=== PATIENT | male | born 1960 | race Caucasian/White ===

== ENCOUNTER 2024-11-04 18:23 | Emergency (ER) | payer OTHER, SELFPAY ==
[2024-11-04 18:24] VITALS: BP 101/64; PULSE 72; RESP 17; TEMP 36.4; O2SAT 93; BMI 33.2
--- NOTE | 2024-11-04 18:49 | CTR_ITS ---
PROCEDURE INFORMATION: Exam: CT Head Without Contrast Exam date and time: 11/04/2024 6:56 PM Age: 64 years old Clinical indication: Injury or trauma; Fall; Blunt trauma (contusions or hematomas); Seizure with frontal headstrike. History of RT side CVA. ; Additional info: Seizure fall anticoagulation TECHNIQUE: Imaging protocol: Computed tomography of the head without contrast. Radiation optimization: All CT scans at this facility use at least one of these dose optimization techniques: automated exposure control; mA and/or kV adjustment per patient size (includes targeted exams where dose is matched to clinical indication); or iterative reconstruction. COMPARISON: No relevant prior studies available. RADIATION DOSE METRICS: Total DLP (mGy-cm): 1078.98 FINDINGS: Brain: The posterosuperior aspect of the right temporal lobe in the posterior right MCA distribution demonstrates an area of remote ischemia. Overall measurements of this process are on the order of 2.2 x 2.7 x 4.6 cm in the CC, AP and transverse dimensions. Mild patchy decreased density seen in both cerebral hemispheres. The midline is intact. Beam hardening artifact through the skull base slightly obscures resolution at the posterior fossa. No hemorrhage. Unremarkable white matter. No mass effect. Mild atherosclerotic calcifications are seen in the bilateral supraclinoid ICA vessels. Cerebral ventricles: No ventriculomegaly. Paranasal sinuses: Visualized sinuses are unremarkable. No fluid levels. Mastoid air cells: Visualized mastoid air cells are well aerated. Bones: Unremarkable. No acute fracture. Soft tissues: Unremarkable. CT/CT head wo con* [id number] IMPRESSION: 1. No acute intracranial head CT findings. 2. Remote right posterolateral temporal lobe ischemic defect in the posterior right MCA distribution. 3. Atrophy/involutional changes of aging with mild chronic small-vessel disease.
--- NOTE | 2024-11-04 18:49 | XRR_ITS ---
PROCEDURE INFORMATION: Exam: XR Chest Exam date and time: 11/04/2024 6:58 PM Age: 64 years old Clinical indication: Prior surgery; Surgery date: 6+ months; Surgery type: Cervical fusion; Seizure activity; Additional info: Seizure fall TECHNIQUE: Imaging protocol: Radiologic exam of the chest. Views: 1 view. COMPARISON: No relevant prior studies available. FINDINGS: Lungs: Snap artifacts overlie the chest. A 2 cm rounded calcific like density seen over the right hilar region. I have marked this area with an arrow. A punctate calcified granuloma is seen over the periphery the right mid lung region. Soft tissue prominence similar challenges resolution due to diminished penetration. No consolidation. Pleural spaces: Costophrenic angles are fairly well demarcated.. No pleural effusion. No pneumothorax. Heart/Mediastinum: The cardiomediastinal silhouette is in the range of normal. No cardiomegaly. Bones/joints: Partially visualized at the edge of the field of view is a plate with screws located at the approximate C5-C6 level. No evidence of displaced rib fractures. XR/XR chest 1V portable [id number] IMPRESSION: 1. PA and lateral views are suggested when clinically feasible in order to better assess the right hilar presumed calcific rounded 2 cm density. 2. No acute single-view plain film findings.
[2024-11-04 18:51] VITALS: BP 101/64; PULSE 73; RESP 16; O2SAT 98
[2024-11-04 18:56] LABS: Basophils % 0.5 %; Eosinophils # 0.3 10^3/uL (0.0-0.8); Eosinophils % 5.6 %; Hematocrit 48.5 % (37-53); Lymphocytes # 1.7 10^3/uL (0.8-4.8); Lymphocytes % 28.1 %; Mean Corpuscular Hemoglobin 31.2 pg (27-33); Mean Corpuscular Volume 94.5 fl (82-101); Mean Platelet Volume 10.9 fL (7.4-10.4); Monocytes # 0.8 10^3/uL (0.2-0.9); Monocytes % 12.5 %; Neutrophils # 3.23 10^3/uL (1.8-7.7); Neutrophils % 53.1 %; Nucleated Red Blood Cells % 0 %; Platelet Count 236 10^3/cmm (157-399); Red Blood Count 5.13 10^6/uL (3.85-5.65); Red Cell Distribution Width 13.1 % (12.1-15.1); White Blood Count 6.08 10^3/uL (3.29-11.43)
[2024-11-04 18:58] LABS: Bilirubin Urine Negative (Negative); Blood Urine Negative (Negative); Glucose Urine UA Negative (Normal); Ketones Urine Negative (Negative); Leukocyte Esterase Urine Negative (Negative); Nitrate Urine Negative (Negative); Protein Urine Negative (Negative); Specific Gravity, Urine 1.009 (1.005-1.030); Urine Appearance Clear (CLEAR); Urine Color Yellow (Yellow); Urobilinogen Urine 0.2 mg/dL (Negative); pH Urine 6.5 (5-7)
[2024-11-04 19:03] LABS: Add Urine Microscopic? YES; Bacteria Urine None Seen /hpf; Hyaline Casts Urine 0-4 /lpf; RBC Urine 0-2 /hpf (0-2); Squamous Epithelial Cell Urine 0-5 /hpf (0-5); WBC Urine 0-5 /hpf (0-5)
--- NOTE | 2024-11-04 19:03 | W.ED.SEIZURE ---
HPI - Seizure General: Chief Complaint: Seizure Stated Complaint: seizure - hit head Time Seen by Provider: 11/04/24 18:28 History of Present Illness: HPI Narrative: Patient presents to the ER by EMS after having a seizure falling landing on the floor. Patient does not have any memory of this. Patient is in rehab for drug abuse. He has been feeling stressed recently. He does have a history of epilepsy and is currently taking all of his medication. Patient is fully alert oriented coherent. Seizure History: Yes Place: Home Related Data Allergies Allergy/AdvReac Type Severity Reaction Status Date / Time haloperidol (From Haldol) Allergy ADR-Cramping Verified 11/04/24 18:30 of the Muscles ketorolac (From Toradol) Allergy ALGY-Hives Verified 11/04/24 18:30 sumatriptan (From Imitrex) Allergy ADR-Chest Verified 11/04/24 18:30 Pain Review of Systems General: Reports: 10 or more systems reviewed and unremarkable except in HPI and below Physical Exam Const: COMMON NORMALS: no acute distress, average body habitus, patient oriented x3, no limitations, healthy appearing, alert and well nourished HENMT: COMMON NORMALS: normocephalic, atraumatic, hearing grossly normal bilaterally, external ears normal, Normal external nose present, moist oral mucous membranes and oropharynx normal HEAD & SCALP: normocephalic and atraumatic NOSE: Normal external nose present EXTERNAL EAR: Yes external ears normal Eye: COMMON NORMALS: Equal, round and reactive pupils present, EOMs intact bilaterally, conjunctivae normal and no scleral icterus CONJUNCTIVA: Yes conjunctivae normal PUPIL: Yes Equal, round and reactive pupils present Neck/C-Spine: COMMON NORMALS: full ROM, no lymphadenopathy, supple, no meningeal signs, no JVD and Thyroid normal THYROID: Thyroid normal Chest: COMMONS NORMALS: normal inspection of the chest and normal palpation of entire chest wall Resp: COMMON NORMALS: normal respiratory effort, No retractions, No use of accessory muscles and clear to auscultation bilaterally AUSCULTATION: clear to auscultation bilaterally Cardio: COMMON NORMALS: no JVD, regular rate, regular rhythm, S1 normal heart sound present, S2 normal heart sound present, No gallops present (Cardio), No clicks present (Cardio), No murmurs present (Cardio) and No rub (Cardio) RATE: regular rate RHYTHM: regular rhythm HEART SOUNDS: S1 normal heart sound present and S2 normal heart sound present GI: COMMON NORMALS: Normal to inspection, nondistended, normoactive bowel sounds present, Soft to palpation, non-tender, No hepatosplenomegaly present and no masses PALPATION: Yes Soft to palpation and Yes No hepatosplenomegaly present Neuro: COMMON NORMALS: patient oriented x3 SENSORIUM/ORIENTATION: Yes alert MENINGEAL SIGNS: Yes no meningeal signs Course Vital Signs: Vital signs: Vital Signs Temperature 97.6 F 11/04/24 18:24 Pulse Rate 73 11/04/24 19:57 Respiratory Rate 21 H 11/04/24 19:57 Blood Pressure 98/72 11/04/24 19:57 Pulse Oximetry 95 11/04/24 19:57 Oxygen Delivery Me thod Room Air 11/04/24 19:57 MDM - Seizure MDM Narrative Medical decision making narrative: Lab work, checks x-ray, head CT reviewed all essentially benign. Prolactin was slightly elevated 17.67. Went back into talk to the patient Tylenol results. Patient was sleeping soundly. Patient be discharged home. Medical Records Attestation: I reviewed the patient's medical records. Lab Data Attestation: I reviewed the patient's lab results. 11/04/24 18:10 11/04/24 18:10 Labs: Radiology Impressions Chest X-Ray 11/04/24 18:49 IMPRESSION: 1. PA and lateral views are suggested when clinically feasible in order to better assess the right hilar presumed calcific rounded 2 cm density. 2. No acute single-view plain film findings. Head CT 11/04/24 18:49 IMPRESSION: 1. No acute intracranial head CT findings. 2. Remote right posterolateral temporal lobe ischemic defect in the posterior right MCA distribution. 3. Atrophy/involutional changes of aging with mild chronic small-vessel disease. Laboratory Results WBC 6.08 10^3/uL (3.29-11.43) 11/04/24 18:10 RBC 5.13 10^6/uL (3.85-5.65) 11/04/24 18:10 Hgb 16.00 g/dL (11.27-16.99) 11/04/24 18:10 Hct 48.5 % (37-53) 11/04/24 18:10 MCV 94.5 fl (82-101) 11/04/24 18:10 MCH 31.2 pg (27-33) 11/04/24 18:10 MCHC 33.0 g/dL (30-55) 11/04/24 18:10 RDW 13.1 % (12.1-15.1) 11/04/24 18:10 Plt Count 236 10^3/cmm (157-399) 11/04/24 18:10 MPV 10.9 fL (7.4-10.4) H 11/04/24 18:10 Neut % (Auto) 53.1 % 11/04/24 18:10 Lymph % (Auto) 28.1 % 11/04/24 18:10 [place] % (Auto) 12.5 % 11/04/24 18:10 Eos % (Auto) 5.6 % 11/04/24 18:10 Baso % (Auto) 0.5 % 11/04/24 18:10 Neut # (Auto) 3.23 10^3/uL (1.8-7.7) 11/04/24 18:10 Lymph # (Auto) 1.7 10^3/uL (0.8-4.8) 11/04/24 18:10 [place] # (Auto) 0.8 10^3/uL (0.2-0.9) 11/04/24 18:10 Eos # (Auto) 0.3 10^3/uL (0.0-0.8) 11/04/24 18:10 Baso # (Auto) 0.0 10^3/uL (0.0-0.1) 11/04/24 18:10 Nucleated RBC % (auto) 0 % 11/04/24 18:10 Nucleated RBCs # 0.0 /100WBC 11/04/24 18:10 Sodium 138 mmol/L (136-145) 11/04/24 18:10 Potassium 4.2 mmol/L (3.5-5.1) 11/04/24 18:10 Chloride 102 mmol/L (98-107) 11/04/24 18:10 Carbon Dioxide 26 mmol/L (22-29) 11/04/24 18:10 Anion Gap 14.2 (5-19) 11/04/24 18:10 BUN 24 mg/dL (8-23) H 11/04/24 18:10 Creatinine 0.9 mg/dL (0.7-1.2) 11/04/24 18:10 GFR Calculation 85.0 mL/min (90-130) L 11/04/24 18:10 Glucose 107 mg/dL (65-115) 11/04/24 18:10 Calculated Osmolality 291 mOsm/kg (285-295) 11/04/24 18:10 Calcium 9.3 mg/dL (8.5-10.5) 11/04/24 18:10 Magnesium 2.2 mg/dL (1.7-2.3) 11/04/24 18:10 Total Bilirubin 0.3 mg/dL (0.15-1.2) 11/04/24 18:10 AST 13 U/L (0-40) 11/04/24 18:10 ALT 18 U/L (0-41) 11/04/24 18:10 Alkaline Phosphatase 123 U/L (40-130) 11/04/24 18:10 Creatine Kinase 68 U/L (39-308) 11/04/24 18:10 Total Protein 7.0 g/dL (6.6-8.7) 11/04/24 18:10 Albumin 4.0 g/dL (3.5-5.2) 11/04/24 18:10 Globulin 3.0 g/dL (1.3-4.6) 11/04/24 18:10 Prolactin 17.67 ng/mL (4.0-15.2) H 11/04/24 18:10 Urine Color Yellow (Yellow) 11/04/24 18:53 Urine Appearance Clear (CLEAR) 11/04/24 18:53 Urine pH 6.5 (5-7) 11/04/24 18:53 Ur Specific [place] 1.009 (1.005-1.030) 11/04/24 18:53 Urine Protein Negative (Negative) 11/04/24 18:53 Urine Glucose (UA) Negative (Normal) 11/04/24 18:53 Urine Ketones Negative (Negative) 11/04/24 18:53 Urine Blood Negative (Negative) 11/04/24 18:53 Urine Nitrate Negative (Negative) 11/04/24 18:53 Urine Bilirubin Negative (Negative) 11/04/24 18:53 Urine Urobilinogen 0.2 mg/dL (Negative) 11/04/24 18:53 Ur Leukocyte Esterase Negative (Negative) 11/04/24 18:53 Urine RBC 0-2 /hpf (0-2) 11/04/24 18:53 Urine WBC 0-5 /hpf (0-5) 11/04/24 18:53 Ur Squamous Epith Cells 0-5 /hpf (0-5) 11/04/24 18:53 Amorphous Sediment Not Reportable 11/04/24 18:53 Urine Bacteria None seen /hpf (NONE) 11/04/24 18:53 Hyaline Casts 0-4 /lpf H 11/04/24 18:53 All radiology interpretation(s) finalized by discharge Discharge Plan Discharge Patient Disposition: Home Clinical Impression: Epileptic seizure Condition: Stable Discharge Orders: Discharge ED (Routine); Ordered 11/04/24 Ordered By: Mike Kwok Patient Instructions: Epilepsy (ED) Activity Restrictions/Additional Instructions: Activity restrictions/additional instructions: Thank you for choosing [facility] for your healthcare needs today. Please realize that you were seen in the emergency department and that we are providing you with an emergency medical screening exam and this may not be a complete and all exclusive of all testing and/or medical workup we may need to determine your element or severity of your illness. It is very important that you follow-up as instructed with your primary care provider or specialist for the additional evaluation and to discuss your medical treatment plan. You may return to the emergency department should you have concerns or if your condition changes or worsens in any way. Print Language: Ukrainian Coding Level of Care Code ED [employer] Hand Helper for Aury Peña
[2024-11-04] MEDS: ondansetron 2 mg/ML SDV 2 mL 4 MG IVP (19:09)
[2024-11-04 19:22] LABS: Alanine Aminotransferase 18 U/L (0-41); Alkaline Phosphatase 123 U/L (40-130); Anion Gap 14.2 (5-19); Aspartate Amino Transferase 13 U/L (0-40); Blood Urea Nitrogen 24 mg/dL (8-23); Calcium 9.3 mg/dL (8.5-10.5); Carbon Dioxide 26 mmol/L (22-29); Chloride 102 mmol/L (98-107); Creatine Phosphokinase 68 U/L (39-308); Creatinine Clr Calc Pharmacy 106.7425; Glucose 107 mg/dL (65-115); Magnesium 2.2 mg/dL (1.7-2.3); Osmolality Calculated 291 mOsm/kg (285-295); Potassium 4.2 mmol/L (3.5-5.1); Prolactin 17.67 ng/mL (4.0-15.2); Sodium 138 mmol/L (136-145); Total Bilirubin 0.3 mg/dL (0.15-1.2)
[2024-11-04 19:57] VITALS: BP 98/72; PULSE 73; RESP 21; O2SAT 95
[2024-11-04 20:22] VITALS: BP 106/72; PULSE 78; O2SAT 96
== END 2024-11-04 20:23 | disposition home or self-care (01) ==
PROVIDERS: Emergency Provider Emergency Medicine
DX: G40.909 Epilepsy, unspecified, not intractable, without status epilepticus (principal)
CPT/HCPCS: 70450; 71045; 80053; 81001; 82550; 83735; 84146; 85025; 96374; 99285; J2405

== ENCOUNTER 2024-11-08 13:51 | Emergency (ER) | payer OTHER, SELFPAY ==
[2024-11-08 14:01] VITALS: BP 105/63; PULSE 81; RESP 17; TEMP 36.3; O2SAT 96; BMI 33.2
[2024-11-08 14:36] LABS: Basophils % 0.5 %; Eosinophils # 0.4 10^3/uL (0.0-0.8); Eosinophils % 6.8 %; Hematocrit 45.5 % (37-53); Lymphocytes # 1.5 10^3/uL (0.8-4.8); Lymphocytes % 23.5 %; Mean Corpuscular HGB Conc 32.1 g/dL (30-55); Mean Corpuscular Hemoglobin 30.8 pg (27-33); Mean Platelet Volume 10.1 fL (7.4-10.4); Monocytes # 0.9 10^3/uL (0.2-0.9); Monocytes % 13.9 %; Neutrophils # 3.48 10^3/uL (1.8-7.7); Neutrophils % 54.7 %; Nucleated Red Blood Cells % 0 %; Platelet Count 203 10^3/cmm (157-399); Red Blood Count 4.74 10^6/uL (3.85-5.65); Red Cell Distribution Width 13.7 % (12.1-15.1); White Blood Count 6.35 10^3/uL (3.29-11.43)
[2024-11-08 14:55] LABS: Alanine Aminotransferase 20 U/L (0-41); Albumin Level 3.6 g/dL (3.5-5.2); Alkaline Phosphatase 106 U/L (40-130); Anion Gap 12.3 (5-19); Aspartate Amino Transferase 15 U/L (0-40); Blood Urea Nitrogen 31 mg/dL (8-23); Calcium 8.6 mg/dL (8.5-10.5); Carbon Dioxide 22 mmol/L (22-29); Chloride 108 mmol/L (98-107); Creatinine Clr Calc Pharmacy 87.3347; Globulin 2.8 g/dL (1.3-4.6); Glomerular Filtration Rate 67.4 mL/min (90-130); Glucose 96 mg/dL (65-115); Osmolality Calculated 292 mOsm/kg (285-295); Potassium 4.3 mmol/L (3.5-5.1); Sodium 138 mmol/L (136-145); Total Bilirubin 0.2 mg/dL (0.15-1.2); Total Protein 6.4 g/dL (6.6-8.7)
--- NOTE | 2024-11-08 15:14 | ED_ITS ---
HPI - Seizure 2 General: Chief Complaint: Seizure Stated Complaint: having arcadio womack hit head on floor Time Seen by Provider: 11/08/24 15:08 Source: patient Mode of arrival: ambulatory Limitations: no limitations History of Present Illness: HPI Narrative: Patient is a 64-year-old male presents to ED today along with a member of the [facility] staff here for evaluation of seizures-states he has had 5 seizures over the past 3-4 days. Patient states he has a longstanding history of epilepsy that was initially diagnosed over a decade ago. He is not sure if he has ever been on seizure medications but states he currently is not on any. He was seen here in our emergency department 3 to 4 days ago for a complaint of seizures. Had a workup completed at that time including CT imaging. Patient states he is at [facility] for methamphetamine use and has not used in over 41 days. States he has not used alcohol in several years. He does not follow with neurology. MD complaint: seizure Onset (ago): day(s) Description of Episode: tonic-clonic movement -: minutes(s) Witnessed: Yes - by Bystander Trauma: No (no recent trauma; struck head on last ED visit and had CTs performed) Seizure History: Yes Associated symptoms: Reports no associated symptoms; Deny chest pain, chills, fever(s) or syncope Treatments prior to arrival: none Related Data Previous Rx's ?Medication ?Instructions ?Recorded levetiracetam 500 mg tablet 500 mg PO BID #60 tabs 07/25 (Keppra) Allergies Allergy/AdvReac Type Severity Reaction Status Date / Time haloperidol (From Haldol) Allergy ADR-Cramping Verified 11/04/24 18:30 of the Muscles ketorolac (From Toradol) Allergy ALGY-Hives Verified 11/04/24 18:30 sumatriptan (From Imitrex) Allergy ADR-Chest Verified 11/04/24 18:30 Pain Review of Systems 2 Const: Denies: fever(s) or chills Eyes: Denies: change in vision or blurry vision Card: Denies: chest pain, palpitations, irregular heart rhythm, lightheadedness, syncope or dyspnea on exertion Resp: Denies: dyspnea, productive cough or pain on inspiration GI: Denies: abdominal pain, nausea, vomiting, heartburn or diarrhea : Denies: difficulty urinating or dysuria Musc: Denies: neck pain, back pain or joint pain Skin/Breast: Denies: rash Neuro: Reports: seizure-like activity; Denies: headache(s), numbness in extremities, weakness in extremities, sensory changes or dizziness Physical Exam 2 Const: COMMON NORMALS: no acute distress, average body habitus, patient oriented x3, no limitations, healthy appearing, alert and well nourished G ENERAL APPEARANCE: cooperative ORIENTATION/CONSCIOUSNESS: Yes awake, Yes oriented to person, Yes oriented to place and Yes oriented to time HENMT: COMMON NORMALS: normocephalic and atraumatic HEAD & SCALP: normal to inspection, normocephalic and atraumatic FACE & SINUS: face symmetric Eye: COMMON NORMALS: Equal, round and reactive pupils present and EOMs intact bilaterally GENERAL EYE: appearance normal, both eyes and all related structures and normal light reflex PUPIL: Yes Equal, round and reactive pupils present DIRECT OPHTHALMOSCOPY: Yes normal light reflex Neck/C-Spine: COMMON NORMALS: full ROM, no lymphadenopathy, supple and no meningeal signs Chest: COMMONS NORMALS: normal inspection of the chest Resp: COMMON NORMALS: normal respiratory effort and clear to auscultation bilaterally AUSCULTATION: clear to auscultation bilaterally Cardio: COMMON NORMALS: regular rate and regular rhythm RATE: regular rate RHYTHM: regular rhythm Extremity: GENERAL: Yes normal exam except as noted Neuro: EUSEBIO COMA SCALE: document GCS findings Eusebio coma scale eye opening: Spontaneous [place] coma scale verbal response: Orientated Eusebio coma scale motor response: Obey commands [place] coma scale total score: 15 COMMON NORMALS: patient oriented x3, CN's II-XII intact bilaterally, moves all extremities, no focal motor deficits, no sensory deficits noted and gait normal SENSORIUM/ORIENTATION: Yes alert, Yes oriented to person, Yes oriented to place and Yes oriented to time MENINGEAL SIGNS: Yes no meningeal signs Skin: COMMON NORMALS: no rashes or lesions noted GENERAL SKIN EXAM: no rashes or lesions noted Course 2 Vital Signs: Vital signs: Vital Signs Temperature 97.3 F L 11/08/24 14:01 Pulse Rate 78 11/08/24 15:32 Respiratory Rate 17 11/08/24 14:01 Blood Pressure 118/69 11/08/24 15:32 Pulse Oximetry 97 11/08/24 15:32 Oxygen Delivery Me thod Room Air 11/08/24 15:32 MDM - Seizure MDM Narrative Medical decision making narrative: Patient will be given an IV loading dose of Keppra and placed on Keppra 500mg twice daily at home. Case management referral placed for neurology follow-up. Return to ED precautions discussed. Blood work was unremarkable today. He did receive more extensive workup just a few days ago here in our ED. I did not see any indication to repeat these today. Lab Data 11/08/24 14:28 11/08/24 14:28 Labs: Laboratory Results WBC 6.35 10^3/uL (3.29-11.43) 11/08/24 14:28 RBC 4.74 10^6/uL (3.85-5.65) 11/08/24 14:28 Hgb 14.60 g/dL (11.27-16.99) 11/08/24 14:28 Hct 45.5 % (37-53) 11/08/24 14:28 MCV 96.0 fl (82-101) 11/08/24 14:28 MCH 30.8 pg (27-33) 11/08/24 14:28 MCHC 32.1 g/dL (30-55) 11/08/24 14:28 RDW 13.7 % (12.1-15.1) 11/08/24 14:28 Plt Count 203 10^3/cmm (157-399) 11/08/24 14:28 MPV 10.1 fL (7.4-10.4) 11/08/24 14:28 Neut % (Auto) 54.7 % 11/08/24 14:28 Lymph % (Auto) 23.5 % 11/08/24 14:28 [place] % (Auto) 13.9 % 11/08/24 14:28 Eos % (Auto) 6.8 % 11/08/24 14:28 Baso % (Auto) 0.5 % 11/08/24 14:28 Neut # (Auto) 3.48 10^3/uL (1.8-7.7) 11/08/24 14:28 Lymph # (Auto) 1.5 10^3/uL (0.8-4.8) 11/08/24 14:28 [place] # (Auto) 0.9 10^3/uL (0.2-0.9) 11/08/24 14:28 Eos # (Auto) 0.4 10^3/uL (0.0-0.8) 11/08/24 14: Baso # (Auto) 0.0 10^3/uL (0.0-0.1) 11/08/24 14:28 Nucleated RBC % (auto) 0 % 11/08/24 14: Nucleated RBCs # 0.0 /100WBC 11/08/24 14:28 Sodium 138 mmol/L (136-145) 11/08/24 14:28 Potassium 4.3 mmol/L (3.5-5.1) 11/08/24 14:28 Chloride 108 mmol/L (98-107) H 11/08/24 14: Carbon Dioxide 22 mmol/L (22-29) 11/08/24 14: Anion Gap 12.3 (5-19) 11/08/24 14: BUN 31 mg/dL (8-23) H 11/08/24 14:28 Creatinine 1.1 mg/dL (0.7-1.2) 11/08/24 14:28 GFR Calculation 67.4 mL/min (90-130) L 11/08/24 14:28 Glucose 96 mg/dL (65-115) 11/08/24 14: Calculated Osmolality 292 mOsm/kg (285-295) 11/08/24 14:28 Calcium 8.6 mg/dL (8.5-10.5) 11/08/24 14:28 Total Bilirubin 0.2 mg/dL (0.15-1.2) 11/08/24 14:28 AST 15 U/L (0-40) 11/08/24 14:28 ALT 20 U/L (0-41) 11/08/24 14:28 Alkaline Phosphatase 106 U/L (40-130) 11/08/24 14:28 Total Protein 6.4 g/dL (6.6-8.7) L 11/08/24 14:28 Albumin 3.6 g/dL (3.5-5.2) 11/08/24 14:28 Globulin 2.8 g/dL (1.3-4.6) 11/08/24 14:28 No radiology studies performed this visit Discharge Plan Discharge Patient Disposition: Home Clinical Impression: Epileptic seizure Condition: Stable Prescriptions: New levetiracetam [Keppra] 500 mg tablet 500 mg PO BID Qty: 60 0RF Discharge Orders: Discharge ED (Routine); Ordered 11/08/24 Ordered By: Trice Lerma Patient Instructions: Epilepsy (DC), Recurrent Seizures in Adults (ED), Seizures After Traumatic Brain Injury (ED), Seizures Activity Restrictions/Additional Instructions: As we discussed, you were given an IV loading dose of Keppra prior to discharge. We will place you on Keppra at home twice daily. This medication can be titrated upward based on effect. I would like you to follow-up with neurology. I did place a case management referral for this. You may return to the emergency department for continued seizures or any other concerns you may have. Print Language: Bulgarian Coding Level of Care Code ED [employer] Designer for Aury Peña
[2024-11-08 15:32] VITALS: BP 118/69; PULSE 78; O2SAT 97
[2024-11-08] MEDS: levETIRAcetam 1,000 MG/100 ML PREMIX 400 MG IV (15:42)
[2024-11-08 16:03] VITALS: BP 111/60; PULSE 72; O2SAT 95
--- NOTE | 2024-11-10 07:29 | DCPLANNER ---
messaged neuro for er f/u
== END 2024-11-08 16:07 | disposition home or self-care (01) ==
PROVIDERS: Emergency Medicine; Emergency Provider Physician Assistant
DX: G40.909 Epilepsy, unspecified, not intractable, without status epilepticus (principal)
CPT/HCPCS: 36415; 80053; 85025; 96374; 99284; J1953

== ENCOUNTER 2024-11-08 20:02 | Emergency (ER) | payer OTHER, SELFPAY ==
--- NOTE | 2024-11-08 20:09 | CTR_ITS ---
PROCEDURE INFORMATION: Exam: CT Head Without Contrast Exam date and time: 11/08/2024 8:41 PM Age: 64 years old Clinical indication: Other: Seizures; Additional info: Seizure TECHNIQUE: Imaging protocol: Computed tomography of the head without contrast. Radiation optimization: All CT scans at this facility use at least one of these dose optimization techniques: automated exposure control; mA and/or kV adjustment per patient size (includes targeted exams where dose is matched to clinical indication); or iterative reconstruction. COMPARISON: CT head wo con* [id number] 11/04/2024 6:56 PM RADIATION DOSE METRICS: Total DLP (mGy-cm): 1181.98 FINDINGS: Brain: Similar chronic ischemic defect in the right posterolateral temporal lobe of the right MCA distribution. Scattered hypodensities in the periventricular and subcortical white matter likely reflecting chronic microvascular ischemic changes. Mild diffuse brain parenchymal atrophy. No mass effect or midline shift. No acute intracranial hemorrhage. Cerebral ventricles: No ventriculomegaly. Paranasal sinuses: Visualized sinuses are unremarkable. No fluid levels. Mastoid air cells: Visualized mastoid air cells are well aerated. Bones: Unremarkable. No acute fracture. Soft tissues: Unremarkable. CT/CT head wo con* [id number] IMPRESSION: No acute intracranial process. Chronic and senescent changes. Consider follow up with a brain MRI if there is continued clinical concern for an acute ischemic event.
[2024-11-08 20:18] VITALS: BP 120/71; PULSE 70; RESP 15; TEMP 36.6; O2SAT 96; BMI 33.2
--- NOTE | 2024-11-08 20:41 | ED_ITS ---
HPI - Seizure 2 General: Chief Complaint: Seizure Stated Complaint: possible seizure Time Seen by Provider: 11/08/24 20:31 History of Present Illness: HPI Narrative: 64-year-old man who presents to the [facility] room with possible seizure versus syncope. He had no history of this prior to a few days ago. He is now been seen 3 times in the emergency room. He is currently at a rehab center locally called [facility]. 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 He is not a drinker. He says he started feeling weak and the next thing he knows he woke up on the cot. He tells me that staff there says he did have some seizure- like activity. He was started on Keppra earlier today. No postictal state. No loss of bowel or bladder. No injuries. No tongue bites or anything like that. Seizure History: Yes Related Data Previous Rx's ?Medication ?Instructions ?Recorded levetiracetam 500 mg tablet 500 mg PO BID #60 tabs 07/25 (Keppra) Allergies Allergy/AdvReac Type Severity Reaction Status Date / Time haloperidol (From Haldol) Allergy ADR-Cramping Verified 11/04/24 18:30 of the Muscles ketorolac (From Toradol) Allergy ALGY-Hives Verified 11/04/24 18:30 sumatriptan (From Imitrex) Allergy ADR-Chest Verified 11/04/24 18:30 Pain Review of Systems 2 Narrative: Constitutional symptoms: Negative except as documented in HPI. Skin symptoms: Negative except as documented in HPI. Eye symptoms: Negative except as documented in HPI. ENMT symptoms: Negative except as documented in HPI. Respiratory symptoms: Negative except as documented in HPI. Cardiovascular symptoms: Negative except as documented in HPI. Gastrointestinal symptoms: Negative except as documented in HPI. Genitourinary symptoms: Negative except as documented in HPI. Musculoskeletal symptoms: Negative except as documented in HPI. Neurologic symptoms: Negative except as documented in HPI. Psychiatric symptoms: Negative except as documented in HPI. Endocrine symptoms: Negative except as documented in HPI. Physical Exam 2 Narrative: EXAM NARRATIVE: General: Alert, no acute distress. Skin: Warm, dry. Head: Normocephalic, atraumatic. Neck: Supple, trachea midline. Eye: Extraocular movements are intact. Ears, nose, mouth and throat: mucosa moist. Cardiovascular: Regular, Normal peripheral perfusion. Respiratory: Lungs are clear to auscultation, respirations are non-labored, breath sounds are equal, Symmetrical chest wall expansion. Gastrointestinal: Soft, Nontender, Non distended Musculoskeletal: Normal ROM, no deformity. Neurological: Alert and oriented, No focal neurological deficit observed. Psychiatric: Cooperative, appropriate mood & affect. Course 2 Vital Signs: Vital signs: Vital Signs Temperature 97.9 F 11/08/24 20:18 Pulse Rate 65 11/09/24 00:31 Respiratory Rate 14 11/09/24 00:31 Blood Pressure 106/49 11/09/24 00:31 Pulse Oximetry 97 11/09/24 00:31 Oxygen Delivery Me thod Room Air 11/09/24 00:31 MDM - Seizure MDM Narrative Medical decision making narrative: Medical decision making: Differential diagnosis for this patient with a complaint of seizure like activity would include but not be limited to, and based on the above HPI, review of systems and physical exam: seizure, DT's, alcohol withdrawal, brain malignancy, pseudo-seizure, syncope. Orders placed to evaluate differential diagnosis based on the above differential, HPI and physical exam CT head: No acute intracranial process. no intracranial hemorrhage, no evidence of infarct. no evidence of acute fracture.This was reviewed and interpreted by myself the ER physician. EKG: Normal sinus rhythm, No ST-T changes, no ectopy, normal LA & QRS intervals, This was reviewed and interpreted by myself the ER physician at 2103. Lab Review: Laboratory results were reviewed and interpreted by myself the emergency room physician Lab work is unremarkable. No leukocytosis. No anemia. No renal failure. Troponin is negative. CTA of the chest PE protocol: No acute process. Multiple chronic findings as below. This was reviewed and interpreted by myself the emergency room physician. I also reviewed the radiology report. I reviewed the patient's medical record. Reexamination: Patient remained stable. No increased work of breathing. No altered mental status. No focal motor deficits. Assessment and plan: Seizure-like activity - Discharged home - Discussed plan with patient. Answered any questions. - Evaluation and treatment of this problem were appropriate in the emergency setting. Lab Data 11/08/24 21:01 11/08/24 21:01 Labs: Radiology Impressions Head CT 11/08/24 20:09 IMPRESSION: No acute intracranial process. Chronic and senescent changes. Consider follow up with a brain MRI if there is continued clinical concern for an acute ischemic event. Chest CTA 11/08/24 22:08 IMPRESSION: 1. Negative for pulmonary embolus. 2. Cardiomegaly. 3. Coronary artery atherosclerotic calcifications. 4. Cholecystectomy. 5. Multilevel bridging degenerative calcifications throughout the spine. 6. Bilateral dependent atelectasis. Laboratory Results WBC 5.78 10^3/uL (3.29-11.43) 11/08/24 21: RBC 4.55 10^6/uL (3.85-5.65) 11/08/24 21: Hgb 13.90 g/dL (11.27-16.99) 11/08/24 21: Hct 43.2 % (37-53) 11/08/24 21: MCV 94.9 fl (82-101) 11/08/24 21: MCH 30.5 pg (27-33) 11/08/24: MCHC 32.2 g/dL (30-55) 11/08/24 21: RDW 13.7 % (12.1-15.1) 11/08/24 21: Plt Count 200 10^3/cmm (157-399) 11/08/24 21: MPV 10.1 fL (7.4-10.4) 11/08/24 21: Neut % (Auto) 54.1 % 11/08/24 21: Lymph % (Auto) 25.1 % 11/08/24 21: [place] % (Auto) 13.3 % 11/08/24 21: Eos % (Auto) 6.7 % 11/08/24 21: Baso % (Auto) 0.5 % 11/08/24 21: Neut # (Auto) 3.12 10^3/uL (1.8-7.7) 11/08/24 21: Lymph # (Auto) 1.5 10^3/uL (0.8-4.8) 11/08/24 21: [place] # (Auto) 0.8 10^3/uL (0.2-0.9) 11/08/24 21: Eos # (Auto) 0.4 10^3/uL (0.0-0.8) 11/08/24: Baso # (Auto) 0.0 10^3/uL (0.0-0.1) 11/08/24 21: Nucleated RBC % (auto) 0 % 11/08/24 21: Nucleated RBCs # 0.0 /100WBC 11/08/24 21: Specimen Type Arterial 11/08/24 21: Sample Site Radial, right 11/08/24 21: ABG pH 7.39 (7.35-7.45) 11/08/24: ABG pCO2 40.0 mmHg (35-45) 11/08/24 21: ABG pO2 90.0 mmHg (80.0-100.0) 11/08/24: ABG HCO3 24.4 mmol/L (22-26) 11/08/24 21: ABG O2 Saturation 97.8 11/08/24: ABG Base Excess -0.5 mmol/L (-2.0-2.0) 11/08/24: Adriano Test Pos 11/08/24: A-a O2 Gradient 5.0 mmHg (5-10) 11/08/24 21: Hematocrit 44.7 % (42-52) 11/08/24: Hgb O2 Saturation 96.3 % (95-100) 11/08/24: Carboxyhemoglobin 0.5 %THgb (0.4-20.1) 11/08/24: Methemoglobin 1.0 % (0.4-1.5) 11/08/24 21: Total Hemoglobin 14.6 g/dL (14-18) 11/08/24 21: Sodium 140.0 mmol/L (131-143) 11/08/24 21: Potassium 4.1 mmol/L (3.5-5.0) 11/08/24 21: Glucose 97.0 mg/dL (70-115) 11/08/24: Ionized Calcium 1.2 mmol/L (1.1-1.4) 11/08/24 21: O2 Delivery Device Room air 11/08/24 21: FiO2 0.0 % 11/08/24 21: Supervisor Product Inspection ID Fran 11/08/24 21:28 Sodium 141 mmol/L (136-145) 11/08/24 21: Potassium 4.5 mmol/L (3.5-5.1) 11/08/24 21: Chloride 108 mmol/L (98-107) H 11/08/24 21: Carbon Dioxide 25 mmol/L (22-29) 11/08/24 21: Anion Gap 12.5 (5-19) 11/08/24 21: BUN 34 mg/dL (8-23) H 11/08/24 21:01 Creatinine 1.0 mg/dL (0.7-1.2) 11/08/24 21: GFR Calculation 75.2 mL/min (90-130) L 11/08/24 21: Glucose 89 mg/dL (65-115) 11/08/24 21: Calculated Osmolality 299 mOsm/kg (285-295) H 11/08/24 21: Lactic Acid 0.6 mmol/L (0.5-2.2) 11/08/24 21: Calcium 8.6 mg/dL (8.5-10.5) 11/08/24 21: Total Bilirubin 0.2 mg/dL (0.15-1.2) 11/08/24 21: AST 14 U/L (0-40) 11/08/24 21: ALT 17 U/L (0-41) 11/08/24 21: Alkaline Phosphatase 97 U/L (40-130) 11/08/24 21: Troponin T Baseline 15 ng/L (0-15) 11/08/24 21: Total Protein 6.0 g/dL (6.6-8.7) L 11/08/24 21: Albumin 3.7 g/dL (3.5-5.2) 11/08/24 21: Globulin 2.3 g/dL (1.3-4.6) 11/08/24 21: Urine Color Yellow (Yellow) 11/08/24:44 Urine Appearance Clear (CLEAR) 11/08/24: Urine pH 5.0 (5-7) 11/08/24 20:44 Ur Specific [place] 1.012 (1.005-1.030) 11/08/24:44 Urine Protein Negative (Negative) 11/08/24 20:44 Urine Glucose (UA) Negative (Normal) 11/08/24 20:44 Urine Ketones Negative (Negative) 11/08/24 20:44 Urine Blood Negative (Negative) 11/08/24 20:44 Urine Nitrate Negative (Negative) 11/08/24 20:44 Urine Bilirubin Negative (Negative) 11/08/24 20:44 Urine Urobilinogen 0.2 mg/dL (Negative) 11/08/24 20:44 Ur Leukocyte Esterase Negative (Negative) 11/08/24 20:44 Urine RBC 0-2 /hpf (0-2) 11/08/24 20:44 Urine WBC 0-5 /hpf (0-5) 11/08/24 20:44 Ur Squamous Epith Cells 0-5 /hpf (0-5) 11/08/24 20:44 Amorphous Sediment Not Reportable 11/08/24 20:44 Urine Bacteria None seen /hpf (NONE) 11/08/24 20:44 Hyaline Casts 0.40 /lpf 11/08/24 20:44 Urine Opiates Screen Negative ng/mL (Negative) 11/08/24 20:44 Ur Barbiturates Screen Negative ng/mL (Negative) 11/08/24 20:44 Ur Phencyclidine Scrn Negative ng/mL (Negative) 11/08/24 20:44 Ur Amphetamines Screen Negative ng/mL (Negative) 11/08/24 20:44 U Benzodiazepines Scrn Negative ng/mL (Negative) 11/08/24 20:44 Urine Cocaine Screen Negative ng/mL (Negative) 11/08/24 20:44 U Marijuana (THC) Screen Negative ng/mL (Negative) 11/08/24 20:44 Influenza A (PCR) Negative (Negative) 11/08/24 21:00 Influenza Type B (PCR) Negative (Negative) 11/08/24 21:00 RSV (PCR) Negative (Negative) 11/08/24 21:00 SARS-CoV-2 (PCR) Negative (Negative) 11/08/24 21:00 All radiology interpretation(s) finalized by discharge Discharge Plan Discharge Patient Disposition: Home Clinical Impression: Seizure-like activity Condition: Stable Prescriptions: No Action levetiracetam [Keppra] 500 mg tablet 500 mg PO BID Qty: 60 0RF Discharge Orders: Discharge ED (Routine); Ordered 11/08/24 Ordered By: Jenny Sam Referrals: Rashad Ortega MD [Physician] - 7-10 days (Please call for a follow-up appointment with the neurologist.) Discharge Diet: Usual diet Discharge Activity: Limit activity as instructed Patient Instructions: Epilepsy (ED), Nonepileptic Seizures (ED), Opioid Safety, Pain Management Activity Restrictions/Additional Instructions: No driving until cleared by your primary care provider or a neurologist. Thank you for choosing [facility] for your healthcare needs today. Please realize this is an emergency room and that we are providing you with a medical screening exam and this may not be complete and all inclusive of all the testing and or work up that you may need to determine your ailment or severity of your illness. You have been screened and evaluated and felt safe for discharge. Health conditions do change or evolve sometimes and as such it is important that you follow up with your Primary Doctor to be re checked, 3-5 days is a general good time frame for follow up. You are always welcome to return to the ED for re assessment if your symptoms are worsening or you have new concerns Print Language: Portuguese Coding Level of Care Code ED Lasting Machine Operator for Aury Peña
[2024-11-08 20:50] LABS: Bilirubin Urine Negative (Negative); Blood Urine Negative (Negative); Glucose Urine UA Negative (Normal); Ketones Urine Negative (Negative); Leukocyte Esterase Urine Negative (Negative); Nitrate Urine Negative (Negative); Protein Urine Negative (Negative); Specific Gravity, Urine 1.012 (1.005-1.030); Urine Appearance Clear (CLEAR); Urine Color Yellow (Yellow); Urobilinogen Urine 0.2 mg/dL (Negative)
[2024-11-08 20:55] LABS: Bacteria Urine None Seen /hpf; RBC Urine 0-2 /hpf (0-2); Squamous Epithelial Cell Urine 0-5 /hpf (0-5); WBC Urine 0-5 /hpf (0-5)
[2024-11-08 20:57] LABS: Amphetamines Screen Urine Negative (Negative); Barbiturates Screen Urine Negative (Negative); Benzodiazepines Screen Urine Negative (Negative); Cocaine Screen Urine Negative (Negative); Opiate Screen Urine Negative (Negative); PCP Screen Urine Negative (Negative); THC Screen Urine Negative (Negative)
[2024-11-08 20:59] VITALS: BP 101/64; PULSE 69; RESP 18; O2SAT 97
--- NOTE | 2024-11-08 21:03 | ECG_ITS ---
[employer] Test Date: 2024-11-08 Pat Name: Pato Lawson Department: Room: Gender: Male Director Of Employer Services: : 1960 Requested By: Jenny Dunne Order Number: [id number] Lisha MD: Michael Fledman M.D. Measurements Intervals [place] Rate: 64 P: 47 NE: 137 QRS: -17 QRSD: 112 T: 128 QT: 456 QTc: 473 Interpretive Statements SINUS RHYTHM LEFT VENTRICULAR HYPERTROPHY AND ST-T CHANGE [VOLTAGE CRITERIA PLUS ST/T ABNORMALITY] POSSIBLE SEPTAL MYOCARDIAL INFARCTION , OF INDETERMINATE AGE [30 ms Q WAVE IN V1/V2] No previous ECG available for comparison Electronically Signed On 11-11-2024 19:12:32 CDT by Michael Feldman M.D. [email or web address]
[2024-11-08 21:06] LABS: Basophils % 0.5 %; Eosinophils # 0.4 10^3/uL (0.0-0.8); Eosinophils % 6.7 %; Hematocrit 43.2 % (37-53); Lymphocytes # 1.5 10^3/uL (0.8-4.8); Lymphocytes % 25.1 %; Mean Corpuscular HGB Conc 32.2 g/dL (30-55); Mean Corpuscular Hemoglobin 30.5 pg (27-33); Mean Corpuscular Volume 94.9 fl (82-101); Mean Platelet Volume 10.1 fL (7.4-10.4); Monocytes # 0.8 10^3/uL (0.2-0.9); Monocytes % 13.3 %; Neutrophils # 3.12 10^3/uL (1.8-7.7); Neutrophils % 54.1 %; Nucleated Red Blood Cells % 0 %; Platelet Count 200 10^3/cmm (157-399); Red Blood Count 4.55 10^6/uL (3.85-5.65); Red Cell Distribution Width 13.7 % (12.1-15.1); White Blood Count 5.78 10^3/uL (3.29-11.43)
[2024-11-08 21:24] LABS: Lactic Sepsis W/Reflex 0.6 mmol/L (0.5-2.2)
[2024-11-08 21:29] LABS: Troponin(5th) Baseline 15 ng/L (0-15)
[2024-11-08 21:30] VITALS: BP 107/60; PULSE 67; RESP 16; O2SAT 98
[2024-11-08 21:30] LABS: Alanine Aminotransferase 17 U/L (0-41); Albumin Level 3.7 g/dL (3.5-5.2); Alkaline Phosphatase 97 U/L (40-130); Anion Gap 12.5 (5-19); Aspartate Amino Transferase 14 U/L (0-40); Blood Urea Nitrogen 34 mg/dL (8-23); Calcium 8.6 mg/dL (8.5-10.5); Carbon Dioxide 25 mmol/L (22-29); Chloride 108 mmol/L (98-107); Creatinine Clr Calc Pharmacy 96.0682; Globulin 2.3 g/dL (1.3-4.6); Glomerular Filtration Rate 75.2 mL/min (90-130); Glucose 89 mg/dL (65-115); Osmolality Calculated 299 mOsm/kg (285-295); Potassium 4.5 mmol/L (3.5-5.1); Sodium 141 mmol/L (136-145); Total Bilirubin 0.2 mg/dL (0.15-1.2)
[2024-11-08 21:38] LABS: ABG PH Result 7.39 (7.35-7.45); Arterial Blood Gas Hematocrit 44.7 % (42-52); Base Excess ABG -0.5 mmol/L (-2.0-2.0); Blood Gas Allen Test Pos; Blood Gas Operator Identificat BUSJA; Blood Gas Sample Site Radial, right; Blood Gas Sample Type Arterial; Carboxyhemoglobin 0.5 %THgb (0.4-20.1); HCO3 ABG 24.4 mmol/L (22-26); HGB O2 Sat 96.3 % (95-100); Ionized Calcium Level - ABG 1.2 mmol/L (1.1-1.4); Oxygen Device ROOM AIR; Oxygen Saturation ABG 97.8; Potassium Level - ABG 4.1 mmol/L (3.5-5.0); Total Hemoglobin 14.6 g/dL (14-18)
[2024-11-08 21:42] LABS: Influenza A NEGATIVE (Negative); Influenza B NEGATIVE (Negative); Respiratory Syncytial Virus Ce NEGATIVE (Negative); SARS-CoV-2 PCR NEGATIVE (Negative)
--- NOTE | 2024-11-08 22:08 | CTR_ITS ---
PROCEDURE INFORMATION: Exam: CTA Chest With Contrast Exam date and time: 11/08/2024 11:03 PM Age: 64 years old Clinical indication: Other: Syncopal epsiodes; Additional info: Syncope TECHNIQUE: Imaging protocol: Computed tomographic angiography of the chest with contrast. Exam focused on the arteries. 3D rendering (Not supervised by radiologist): MIP and/or 3D reconstructed images were created by the technologist. Radiation optimization: All CT scans at this facility use at least one of these dose optimization techniques: automated exposure control; mA and/or kV adjustment per patient size (includes targeted exams where dose is matched to clinical indication); or iterative reconstruction. Contrast material: OMNI 350; Contrast volume: 89 ml; Contrast route: INTRAVENOUS (IV); COMPARISON: CR (CHEST, ) 11/04/2024 6:58 PM RADIATION DOSE METRICS: Total DLP (mGy-cm): 471.21 FINDINGS: Pulmonary arteries: Normal. No pulmonary emboli. Aorta: Unremarkable. No aortic aneurysm. No aortic dissection. Lungs: Bilateral dependent atelectasis. Pleural spaces: Unremarkable. No pneumothorax. No pleural effusion. Heart: Cardiomegaly. Coronary arteries: Coronary artery atherosclerotic calcifications. Lymph nodes: Unremarkable. No enlarged lymph nodes. Gallbladder and biliary ducts: Cholecystectomy. Bones/joints: Multilevel bridging degenerative calcifications throughout the spine. Soft tissues: Unremarkable. CT/CT angio chest PE protcl [id number] IMPRESSION: 1. Negative for pulmonary embolus. 2. Cardiomegaly. 3. Coronary artery atherosclerotic calcifications. 4. Cholecystectomy. 5. Multilevel bridging degenerative calcifications throughout the spine. 6. Bilateral dependent atelectasis.
[2024-11-08] MEDS: iohexol 350 mg/mL 500 mL Btl (per mL) IV (23:09)
[2024-11-08 23:31] VITALS: BP 109/58; PULSE 70; RESP 16; O2SAT 99
[2024-11-09] VITALS: BP 104/52; PULSE 65; RESP 16; O2SAT 96
[2024-11-09 00:31] VITALS: BP 106/49; PULSE 65; RESP 14; O2SAT 97
[2024-11-09 00:49] VITALS: BP 106/49; PULSE 67; RESP 14; O2SAT 98
== END 2024-11-09 00:48 | disposition home or self-care (01) ==
PROVIDERS: Emergency Provider Emergency Medicine
DX: R56.9 Unspecified convulsions (principal); Z11.52 Encounter for screening for COVID-19
CPT/HCPCS: 36415; 70450; 71275; 80051; 80053; 80306; 81001; 82330; 82805; 83605; 84484; 85025; 87637; 93005; 99285

== ENCOUNTER 2024-11-09 13:05 | Emergency (ER) | payer OTHER, SELFPAY ==
[2024-11-09 13:06] VITALS: BP 91/66; PULSE 76; RESP 17; TEMP 36.3; O2SAT 96; BMI 33.2
--- NOTE | 2024-11-09 13:09 | ECG_ITS ---
[employer] Test Date: 2024-11-09 Pat Name: Pato Lawson Department: Room: Gender: Male Central Office Installer: : 1960 Requested By: Ann Gutierrez Order Number: [id number] Lisha MD: Michael Feldman M.D. Measurements Intervals [place] Rate: 71 P: 62 GA: 139 QRS: -5 QRSD: 105 T: 142 QT: 436 QTc: 474 Interpretive Statements SINUS RHYTHM WITH OCCASIONAL VENTRICULAR PREMATURE COMPLEXES SEPTAL MYOCARDIAL INFARCTION , PROBABLY OLD [40+ ms Q WAVE IN V1/V2] MODERATE T-WAVE ABNORMALITY, CONSIDER LATERAL ISCHEMIA [-0.1+ mV T-WAVE IN I/aVL/V5/V6] Compared to ECG 11/08/2024 21:03:28 Ventricular premature complex(es) now present T-wave abnormality now present Possible ischemia now present Left ventricular hypertrophy no longer present ST (T wave) deviation no longer present Myocardial infarct finding still present Electronically Signed On 11-11-2024 19:11:50 CDT by Michael Feldman M.D. [email or web address]
[2024-11-09 13:24] LABS: Basophils % 0.4 %; Eosinophils # 0.3 10^3/uL (0.0-0.8); Eosinophils % 7.1 %; Hematocrit 46.5 % (37-53); Lymphocytes # 1.3 10^3/uL (0.8-4.8); Lymphocytes % 27.7 %; Mean Corpuscular Hemoglobin 30.6 pg (27-33); Mean Corpuscular Volume 95.5 fl (82-101); Mean Platelet Volume 10.6 fL (7.4-10.4); Monocytes # 0.6 10^3/uL (0.2-0.9); Neutrophils # 2.49 10^3/uL (1.8-7.7); Neutrophils % 52.4 %; Nucleated Red Blood Cells % 0 %; Platelet Count 215 10^3/cmm (157-399); Red Blood Count 4.87 10^6/uL (3.85-5.65); Red Cell Distribution Width 13.8 % (12.1-15.1); White Blood Count 4.76 10^3/uL (3.29-11.43)
--- NOTE | 2024-11-09 13:35 | W.ED.SEIZURE ---
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 He denies any headache denies any vomiting diarrhea has no postictal at this time. Seizure History: Yes Associated symptoms: Deny chest pain, chills or fever(s) Related Data Previous Rx's ?Medication ?Instructions ?Recorded levetiracetam 500 mg tablet 500 mg PO BID #60 tabs 11/08/24 (Keppra) Allergies Allergy/AdvReac Type Severity Reaction Status Date / Time haloperidol (From Haldol) Allergy ADR-Cramping Verified 11/04/24 18:30 of the Muscles ketorolac (From Toradol) Allergy ALGY-Hives Verified 11/04/24 18:30 sumatriptan (From Imitrex) Allergy ADR-Chest Verified 11/04/24 18:30 Pain Review of Systems Const: Denies: fever(s), chills, body aches or change in appetite ENMT: Denies: throat pain or dental pain Card: Denies: chest pain Resp: Denies: dyspnea GI: Denies: abdominal pain, nausea, vomiting or diarrhea Musc: Denies: neck pain or back pain Skin/Breast: Denies: rash Neuro: Reports: seizure-like activity; Denies: headache(s) Physical Exam Const: COMMON NORMALS: no acute distress, patient oriented x3 and healthy appearing HENMT: COMMON NORMALS: normocephalic and atraumatic HEAD & SCALP: normocephalic and atraumatic Eye: COMMON NORMALS: conjunctivae normal CONJUNCTIVA: Yes conjunctivae normal Neck/C-Spine: COMMON NORMALS: full ROM and supple Chest: COMMONS NORMALS: normal inspection of the chest Resp: COMMON NORMALS: normal respiratory effort Cardio: COMMON NORMALS: regular rate, regular rhythm and No murmurs present (Cardio) RATE: regular rate RHYTHM: regular rhythm Extremity: COMMON NORMALS: normal to inspection and full ROM Neuro: COMMON NORMALS: patient oriented x3, moves all extremities and no focal motor deficits Psych: COMMON NORMALS: mental status grossly normal, Normal thought process present and cooperative THOUGHT PROCESS: Normal thought process present Skin: COMMON NORMALS: no rashes or lesions noted and no wounds GENERAL SKIN EXAM: no rashes or lesions noted Course Vital Signs: Vital signs: Vital Signs Temperature 97.4 F L 11/09/24 13:06 Pulse Rate 68 11/09/24 14:16 Respiratory Rate 17 11/09/24 13:06 Blood Pressure 100/66 11/09/24 14:16 Pulse Oximetry 96 11/09/24 14:16 Oxygen Delivery Me thod Room Air 11/09/24 14:16 MDM - Seizure MDM Narrative Medical decision making narrative: Patient presents here with a possible seizure he is well-appearing here blood works normal he stable for discharge back [facility] continue Keppra return if worsening Lab Data 11/09/24 13:14 11/09/24 13:14 Labs: Laboratory Results WBC 4.76 10^3/uL (3.29-11.43) 11/09/24 13:14 RBC 4.87 10^6/uL (3.85-5.65) 11/09/24 13:14 Hgb 14.90 g/dL (11.27-16.99) 11/09/24 13:14 Hct 46.5 % (37-53) 11/09/24 13:14 MCV 95.5 fl (82-101) 11/09/24 13:14 MCH 30.6 pg (27-33) 11/09/24 13:14 MCHC 32.0 g/dL (30-55) 11/09/24 13:14 RDW 13.8 % (12.1-15.1) 11/09/24 13:14 Plt Count 215 10^3/cmm (157-399) 11/09/24 13:14 MPV 10.6 fL (7.4-10.4) H 11/09/24 13:14 Neut % (Auto) 52.4 % 11/09/24 13:14 Lymph % (Auto) 27.7 % 11/09/24 13:14 [place] % (Auto) 12.0 % 11/09/24 13:14 Eos % (Auto) 7.1 % 11/09/24 13:14 Baso % (Auto) 0.4 % 11/09/24 13:14 Neut # (Auto) 2.49 10^3/uL (1.8-7.7) 11/09/24 13:14 Lymph # (Auto) 1.3 10^3/uL (0.8-4.8) 11/09/24 13:14 [place] # (Auto) 0.6 10^3/uL (0.2-0.9) 11/09/24 13:14 Eos # (Auto) 0.3 10^3/uL (0.0-0.8) 11/09/24 13:14 Baso # (Auto) 0.0 10^3/uL (0.0-0.1) 11/09/24 13:14 Nucleated RBC % (auto) 0 % 11/09/24 13:14 Nucleated RBCs # 0.0 /100WBC 11/09/24 13:14 Sodium 140 mmol/L (136-145) 11/09/24 13:14 Potassium 4.4 mmol/L (3.5-5.1) 11/09/24 13:14 Chloride 106 mmol/L (98-107) 11/09/24 13:14 Carbon Dioxide 25 mmol/L (22-29) 11/09/24 13:14 Anion Gap 13.4 (5-19) 11/09/24 13:14 BUN 30 mg/dL (8-23) H 11/09/24 13:14 Creatinine 0.8 mg/dL (0.7-1.2) 11/09/24 13:14 GFR Calculation 97.3 mL/min (90-130) 11/09/24 13:14 Glucose 123 mg/dL (65-115) H 11/09/24 13:14 Calculated Osmolality 298 mOsm/kg (285-295) H 11/09/24 13:14 Calcium 8.5 mg/dL (8.5-10.5) 11/09/24 13:14 Total Bilirubin 0.2 mg/dL (0.15-1.2) 11/09/24 13:14 AST 17 U/L (0-40) 11/09/24 13:14 ALT 24 U/L (0-41) 11/09/24 13:14 Alkaline Phosphatase 100 U/L (40-130) 11/09/24 13:14 Total Protein 6.5 g/dL (6.6-8.7) L 11/09/24 13:14 Albumin 3.7 g/dL (3.5-5.2) 11/09/24 13:14 Globulin 2.8 g/dL (1.3-4.6) 11/09/24 13:14 No radiology studies performed this visit EKG Data EKG 1: Attestation: I personally reviewed and interpreted this EKG as follows: EKG interpretation date: 11/09/24 EKG interpretation time: 13:09 Interpretation: nsr hr [address] or t wave abnormalities qrs 105 qtc 458 Discharge Plan Discharge Patient Disposition: Home Clinical Impression: Seizure-like activity Condition: Stable Prescriptions: No Action levetiracetam [Keppra] 500 mg tablet 500 mg PO BID Qty: 60 0RF Discharge Orders: Discharge ED (Routine); Ordered 11/09/24 Ordered By: Ann Gutierrez Discharge Diet: Advance as tolerated Discharge Activity: Resume usual activity Patient Instructions: Generalized Tonic Clonic Seizures (ED) Print Language: Citizen Of [place] Coding Level of Care Code ED Bait Painter for Aury Peña
--- NOTE | 2024-11-09 13:43 | PC.PHAR ---
Pt has 3 medications from 10/01/24 written from [facility]. They are; Olanzapine 5mg daily, Topiramate 25mg bid, and Duloxetine DR 60mg daily. Pt states he has no idea whether he took those medications, he was in group home at the time.
[2024-11-09] MEDS: levETIRAcetam 1,000 MG/100 ML PREMIX 400 MG IV (13:51)
[2024-11-09 13:54] VITALS: BP 99/58; PULSE 71; O2SAT 95
[2024-11-09 13:55] LABS: Alanine Aminotransferase 24 U/L (0-41); Albumin Level 3.7 g/dL (3.5-5.2); Alkaline Phosphatase 100 U/L (40-130); Anion Gap 13.4 (5-19); Aspartate Amino Transferase 17 U/L (0-40); Blood Urea Nitrogen 30 mg/dL (8-23); Calcium 8.5 mg/dL (8.5-10.5); Carbon Dioxide 25 mmol/L (22-29); Chloride 106 mmol/L (98-107); Creatinine Clr Calc Pharmacy 120.0853; Globulin 2.8 g/dL (1.3-4.6); Glomerular Filtration Rate 97.3 mL/min (90-130); Glucose 123 mg/dL (65-115); Osmolality Calculated 298 mOsm/kg (285-295); Potassium 4.4 mmol/L (3.5-5.1); Sodium 140 mmol/L (136-145); Total Bilirubin 0.2 mg/dL (0.15-1.2); Total Protein 6.5 g/dL (6.6-8.7)
[2024-11-09 14:15] VITALS: BP 100/66; BP 103/61; BP 88/60; PULSE 68; PULSE 81
[2024-11-09 14:16] VITALS: BP 100/66; PULSE 68; O2SAT 96
[2024-11-09 15:31] VITALS: BP 118/50; PULSE 63; O2SAT 97
== END 2024-11-09 15:32 | disposition home or self-care (01) ==
PROVIDERS: Emergency Provider Emergency Medicine
DX: R56.9 Unspecified convulsions (principal)
CPT/HCPCS: 80053; 85025; 93005; 96365; 99284; J1953

== ENCOUNTER 2024-11-09 22:52 | Emergency (ER) | payer OTHER, SELFPAY ==
[2024-11-09 23:00] VITALS: BP 94/46; PULSE 79; RESP 18; TEMP 36.7; O2SAT 95
--- NOTE | 2024-11-09 23:10 | W.ED.SEIZURE ---
HPI - Seizure General: Chief Complaint: Seizure Stated Complaint: possible seizure Time Seen by Provider: 11/09/24 22:57 History of Present Illness: HPI Narrative: This patient is a 64-year-old white male who is currently at [facility] for drug rehab. Patient has been seen numerous times over the past week for seizures. He has had thorough workups in the emergency department. He is on Keppra 500 mg p.o. twice daily. Patient states he was asleep. Staff at the facility witnessed seizure and had him sent to the emergency department again. Patient states he is feeling fine now. He states he did not want to come in but they made him come in. He states he has an appointment with the [place] tomorrow at which time he is going to see neurology. Seizure History: Yes Related Data Previous Rx's ?Medication ?Instructions ?Recorded levetiracetam 500 mg tablet 500 mg PO BID #60 tabs 11/08/24 (Keppra) Allergies Allergy/AdvReac Type Severity Reaction Status Date / Time haloperidol (From Haldol) Allergy ADR-Cramping Verified 11/04/24 18:30 of the Muscles ketorolac (From Toradol) Allergy ALGY-Hives Verified 11/04/24 18:30 sumatriptan (From Imitrex) Allergy ADR-Chest Verified 11/04/24 18:30 Pain Review of Systems General: Reports: 10 or more systems reviewed and unremarkable except in HPI and below Neuro: Reports: seizure-like activity Physical Exam Const: COMMON NORMALS: no acute distress, patient oriented x3 and no limitations GENERAL APPEARANCE: cooperative and comfortable HENMT: COMMON NORMALS: normocephalic, atraumatic, Normal nasal mucous membranes and turbinates present, moist oral mucous membranes and oropharynx normal HEAD & SCALP: normal to inspection, normocephalic and atraumatic FACE & SINUS: normal facial exam NOSE: Normal nasal mucous membranes and turbinates present Eye: COMMON NORMALS: Equal, round and reactive pupils present, EOMs intact bilaterally and conjunctivae normal GENERAL EYE: appearance normal, both eyes and all related structures CONJUNCTIVA: Yes conjunctivae normal PUPIL: Yes Equal, round and reactive pupils present Neck/C-Spine: COMMON NORMALS: supple and no JVD Chest: COMMONS NORMALS: normal inspection of the chest Resp: COMMON NORMALS: normal respiratory effort and clear to auscultation bilaterally AUSCULTATION: clear to auscultation bilaterally Cardio: COMMON NORMALS: no JVD, regular rate, regular rhythm, No gallops present (Cardio), No murmurs present (Cardio) and No rub (Cardio) RATE: regular rate RHYTHM: regular rhythm GI: COMMON NORMALS: Normal to inspection, nondistended, normoactive bowel sounds present, Soft to palpation and non-tender AUSCULTATION: Yes normoactive bowel sounds PALPATION: Yes Soft to palpation : COMMON NORMALS: Yes no CVA tenderness BLADDER/KIDNEY EXAM: Yes no CVA tenderness Back/Pelvis: COMMON NORMALS: no CVA tenderness and thoracic and lumbar spine normal to inspection Extremity: COMMON NORMALS: normal to inspection Neuro: COMMON NORMALS: patient oriented x3 and CN's II-XII intact bilaterally Psych: COMMON NORMALS: mental status grossly normal, Normal thought process present and cooperative THOUGHT PROCESS: Normal thought process present Skin: COMMON NORMALS: no rashes or lesions noted, turgor normal and no jaundice GENERAL SKIN EXAM: no rashes or lesions noted and turgor normal Course Vital Signs: Vital signs: Vital Signs Temperature 98.0 F 11/09/24 23:00 Pulse Rate 79 11/09/24 23:00 Respiratory Rate 18 11/09/24 23:00 Blood Pressure 94/46 11/09/24 23:00 Pulse Oximetry 95 11/09/24 23:00 Oxygen Delivery Me thod Room Air 11/09/24 23:00 MDM - Seizure MDM Narrative Medical decision making narrative: No need for another workup tonight. Patient was discharged in stable condition. [facility] No radiology studies performed this visit Discharge Plan Discharge Patient Disposition: Home Clinical Impression: Epileptic seizure Condition: Stable Prescriptions: No Action levetiracetam [Keppra] 500 mg tablet 500 mg PO BID Qty: 60 0RF Discharge Orders: Discharge ED (Routine); Ordered 11/09/24 Ordered By: Pancho Fang Patient Instructions: Seizures Activity Restrictions/Additional Instructions: [facility] Print Language: Persian Coding Level of Care Code ED Flat Bed Knitter for Aury Peña
[2024-11-09 23:27] VITALS: BP 98/51; PULSE 79; RESP 18; O2SAT 94
== END 2024-11-09 23:28 | disposition home or self-care (01) ==
PROVIDERS: Emergency Provider Emergency Medicine
DX: G40.909 Epilepsy, unspecified, not intractable, without status epilepticus (principal)
CPT/HCPCS: 99283

== ENCOUNTER 2024-11-11 15:17 | Emergency (ER) | payer OTHER, SELFPAY ==
[2024-11-11 15:19] VITALS: BP 105/63; PULSE 73; RESP 20; TEMP 36.6; O2SAT 96; BMI 33.2
--- NOTE | 2024-11-11 15:27 | ECG_ITS ---
[facility] Date: 2024-11-11 Pat Name: Pato Lawson Department: Room: Gender: Male Physics Tutor: : 1960 Requested By: Trice Lerma Order Number: [id number] Lisha MD: Michael Feldman M.D. Measurements Intervals [place] Rate: 72 P: 50 ND: 138 QRS: -26 QRSD: 113 T: 118 QT: 438 QTc: 483 Interpretive Statements SINUS RHYTHM WITH OCCASIONAL ECTOPIC PREMATURE COMPLEXES BORDERLINE LEFT AXIS DEVIATION [QRS AXIS < -20] LEFT VENTRICULAR HYPERTROPHY AND ST-T CHANGE [VOLTAGE CRITERIA PLUS ST/T ABNORMALITY] Compared to ECG 11/09/2024 13:09:15 Left ventricular hypertrophy now present ST (T wave) deviation now present Ventricular premature complex(es) no longer present Myocardial infarct finding no longer present T-wave abnormality no longer present Possible ischemia no longer present Electronically Signed On 11-11-2024 19:01:13 CDT by Michael Feldman M.D. [id number] [id number]
--- NOTE | 2024-11-11 15:34 | XRR_ITS ---
PROCEDURE INFORMATION: Exam: XR Chest Exam date and time: 11/11/2024 3:40 PM Age: 64 years old Clinical indication: Shortness of breath; Chest pain; SOB TECHNIQUE: Imaging protocol: Radiologic exam of the chest. Views: 1 view. COMPARISON: CT angio chest PE protcl [id number] 11/08/2024 11:03 PM FINDINGS: Lungs: Unremarkable. No consolidation. Pleural spaces: Unremarkable. No pleural effusion. No pneumothorax. Heart/Mediastinum: Unremarkable. No cardiomegaly. Bones/joints: Unremarkable. XR/XR chest 1V portable [id number] IMPRESSION: No acute findings.
--- NOTE | 2024-11-11 15:38 | W.ED.SOB ---
HPI - SOB/Dyspnea General: Chief Complaint: Shortness of Breath/Dyspnea Stated Complaint: chest pain - SOB Time Seen by Provider: 11/11/24 15:22 Source: patient Mode of arrival: ambulatory Limitations: no limitations History of Present Illness: HPI Narrative: Patient is a 64-year-old male presents to ED today with a complaint of cough, congestion, shortness of breath, chest pain beginning sometime yesterday and lasting all evening. Patient states he was up all night coughing-describes as somewhat productive. He does have a history of COPD. He reportedly was on some type of inhalers for these but apparently [place] made him discard them as they were unlabeled. Patient is residing at [facility] due to methamphetamine addiction. Has been seen in the ED mulitple times recently for seizure like activity. He did undergo CTA imaging of his chest two days ago and was negative for pulmonary emboli. Upon arrival, patient is in no actue distress satting 96% on room air. MD elicited complaint: shortness of breath and cough Pertinent past history: COPD Onset (ago): day(s) Timing: constant Severity: moderate Exacerbating factors: nothing Relieving factors: nothing Known history of: COPD Associated symptoms: Reports chest congestion; Deny abdominal pain, chest pain, dizziness, extremity pain, fever(s), lightheadedness, nausea, palpitations, syncope or vomiting Treatment prior to arrival: oxygen Related Data Previous Rx's ?Medication ?Instructions ?Recorded levetiracetam 500 mg tablet 500 mg PO BID #60 tabs 11/08/24 (Keppra) albuterol sulfate 90 mcg/actuation 2 inh inhalation Q4H PRN shortness 11/11/24 aerosol inhaler of breath or wheezing #6.7 grams fluticasone propionate 45 2 inh inhalation BID #12 grams 11/11/24 mcg-salmeterol 21 mcg/actuation HFA inhaler (Advair HFA) prednisone 10 mg tablet 10 mg PO DAILY 6 days #20 tabs 11/11/24 Allergies Allergy/AdvReac Type Severity Reaction Status Date / Time haloperidol (From Haldol) Allergy ADR-Cramping Verified 11/04/24 18:30 of the Muscles ketorolac (From Toradol) Allergy ALGY-Hives Verified 11/04/24 18:30 sumatriptan (From Imitrex) Allergy ADR-Chest Verified 11/04/24 18:30 Pain Review of Systems Const: Denies: fever(s), chills, body aches, fatigue or malaise Eyes: Denies: change in vision or blurry vision Card: Denies: chest pain, palpitations, irregular heart rhythm, lightheadedness, syncope or dyspnea on exertion Resp: Reports: dyspnea, productive cough and chest congestion; Denies: wheezing or pain on inspiration GI: Denies: abdominal pain, nausea, vomiting, heartburn or diarrhea : Denies: flank pain, difficulty urinating or dysuria Musc: Denies: neck pain, back pain, extremity pain, extremity swelling or joint pain Skin/Breast: Denies: rash Neuro: Denies: headache(s), numbness in extremities, weakness in extremities, sensory changes or dizziness Physical Exam Const: COMMON NORMALS: no acute distress, patient oriented x3, no limitations, alert and well nourished GENERAL APPEARANCE: cooperative ORIENTATION/CONSCIOUSNESS: Yes awake, Yes oriented to person, Yes oriented to place and Yes oriented to time HENMT: COMMON NORMALS: normocephalic and atraumatic HEAD & SCALP: normal to inspection, normocephalic and atraumatic Neck/C-Spine: COMMON NORMALS: full ROM, no lymphadenopathy, supple, no meningeal signs and no JVD Chest: COMMONS NORMALS: normal inspection of the chest and normal palpation of entire chest wall Resp: COMMON NORMALS: normal respiratory effort and clear to auscultation bilaterally AUSCULTATION: clear to auscultation bilaterally Cardio: COMMON NORMALS: no JVD, regular rate and regular rhythm RATE: regular rate RHYTHM: regular rhythm GI: COMMON NORMALS: Normal to inspection, nondistended, normoactive bowel sounds present, Soft to palpation, non-tender, No hepatosplenomegaly present and no masses PALPATION: Yes Soft to palpation and Yes No hepatosplenomegaly present Back/Pelvis: COMMON NORMALS: thoracic and lumbar spine normal to inspection Extremity: COMMON NORMALS: normal to inspection, no clubbing, cyanosis or edema, no calf tenderness and no pedal edema GENERAL: Yes normal exam except as noted Neuro: THAD COMA SCALE: document GCS findings [place] coma scale eye opening: Spontaneous Thad coma scale verbal response: Orientated Thad coma scale motor response: Obey commands Thad coma scale total score: 15 COMMON NORMALS: patient oriented x3, moves all extremities, no focal motor deficits, no sensory deficits noted and gait normal SENSORIUM/ORIENTATION: Yes alert, Yes oriented to person, Yes oriented to place and Yes oriented to time MENINGEAL SIGNS: Yes no meningeal signs Skin: COMMON NORMALS: no rashes or lesions noted GENERAL SKIN EXAM: no rashes or lesions noted Course Vital Signs: Vital signs: Vital Signs Temperature 97.9 F 11/11/24 15:19 Pulse Rate 68 11/11/24 16:24 Respiratory Rate 18 11/11/24 16:21 Blood Pressure 105/63 11/11/24 15:19 Pulse Oximetry 98 11/11/24 16:21 Oxygen Delivery Me thod Room Air 11/11/24 16:21 MDM - SOB/Dyspnea Medical Decision Making Patient clinically arrives in no acute distress. His vital signs are stable. He is satting 98% on room air on reevaluation. His blood work overall is unremarkable. White count is normal. Baseline troponin is normal. EKG shows no ischemic changes. COVID/flu/RSV swab currently pending. CXR showing no acute findings. Patient does feel somewhat better after DuoNeb treatment. He has had no persistent chest pain while here. As stated in HPI, he underwent CTA imaging 48 hours ago which was negative for pulmonary emboli. At this time I would suspect COPD exacerbation versus viral illness/bronchitis. He does not appear fluid overloaded. Return precautions given. Medical Records I reviewed the patient's medical records. Lab Data I reviewed the patient's lab results. 11/11/24 15:58 11/11/24 15:58 Labs/Radiology: Radiology Impressions Chest X-Ray 11/11/24 15:34 IMPRESSION: No acute findings. Laboratory Results WBC 7.11 10^3/uL (3.29-11.43) 11/11/24 15:58 RBC 4.70 10^6/uL (3.85-5.65) 11/11/24 15:58 Hgb 14.70 g/dL (11.27-16.99) 11/11/24 15:58 Hct 45.0 % (37-53) 11/11/24 15:58 MCV 95.7 fl (82-101) 11/11/24 15:58 MCH 31.3 pg (27-33) 11/11/24 15:58 MCHC 32.7 g/dL (30-55) 11/11/24 15:58 RDW 13.8 % (12.1-15.1) 11/11/24 15:58 Plt Count 197 10^3/cmm (157-399) 11/11/24 15:58 MPV 10.2 fL (7.4-10.4) 11/11/24 15:58 Neut % (Auto) 60.2 % 11/11/24 15:58 Lymph % (Auto) 19.4 % 11/11/24 15:58 [place] % (Auto) 12.9 % 11/11/24 15:58 Eos % (Auto) 6.6 % 11/11/24 15:58 Baso % (Auto) 0.6 % 11/11/24 15:58 Neut # (Auto) 4.28 10^3/uL (1.8-7.7) 11/11/24 15:58 Lymph # (Auto) 1.4 10^3/uL (0.8-4.8) 11/11/24 15:58 [place] # (Auto) 0.9 10^3/uL (0.2-0.9) 11/11/24 15:58 Eos # (Auto) 0.5 10^3/uL (0.0-0.8) 11/11/24 15:58 Baso # (Auto) 0.0 10^3/uL (0.0-0.1) 11/11/24 15:58 Nucleated RBC % (auto) 0 % 11/11/24 15:58 Nucleated RBCs # 0.0 /100WBC 11/11/24 15:58 Sodium 138 mmol/L (136-145) 11/11/24 15:58 Potassium 4.6 mmol/L (3.5-5.1) 11/11/24 15:58 Chloride 108 mmol/L (98-107) H 11/11/24 15:58 Carbon Dioxide 22 mmol/L (22-29) 11/11/24 15:58 Anion Gap 12.6 (5-19) 11/11/24 15:58 BUN 28 mg/dL (8-23) H 11/11/24 15:58 Creatinine 0.9 mg/dL (0.7-1.2) 11/11/24 15:58 GFR Calculation 85.0 mL/min (90-130) L 11/11/24 15:58 Glucose 92 mg/dL (65-115) 11/11/24 15:58 Calculated Osmolality 291 mOsm/kg (285-295) 11/11/24 15:58 Calcium 8.5 mg/dL (8.5-10.5) 11/11/24 15:58 Total Bilirubin 0.3 mg/dL (0.15-1.2) 11/11/24 15:58 AST 23 U/L (0-40) 11/11/24 15:58 ALT 37 U/L (0-41) 11/11/24 15:58 Alkaline Phosphatase 95 U/L (40-130) 11/11/24 15:58 Troponin T Baseline 11 ng/L (0-15) 11/11/24 15:58 Total Protein 6.1 g/dL (6.6-8.7) L 11/11/24 15:58 Albumin 3.8 g/dL (3.5-5.2) 11/11/24 15:58 Globulin 2.3 g/dL (1.3-4.6) 11/11/24 15:58 Influenza A (PCR) Negative (Negative) 11/11/24 15:58 Influenza Type B (PCR) Negative (Negative) 11/11/24 15:58 RSV (PCR) Negative (Negative) 11/11/24 15:58 SARS-CoV-2 (PCR) Negative (Negative) 11/11/24 15:58 All radiology interpretation(s) finalized by discharge Discharge Plan Discharge Patient Disposition: Home Clinical Impression: Acute exacerbation of chronic obstructive airways disease Condition: Stable Prescriptions: New prednisone 10 mg tablet 10 mg PO DAILY 6 Days Qty: 20 0RF Rx Instructions: Take 5 tabs on day 1-2, 4 tabs on day 3, 3 tabs on day 4, 2 tabs on day 5, and 1 tab on day 6 albuterol sulfate 90 mcg/actuation HFA aerosol inhaler 2 inh INHALATION Q4H PRN (Reason: shortness of breath or wheezing) Qty: 6.7 0RF fluticasone propion-salmeterol [Advair HFA] 45-21 mcg/actuation HFA aerosol inhaler 2 inh inhalation BID Qty: 12 0RF No Action levetiracetam [Keppra] 500 mg tablet 500 mg PO BID Qty: 60 0RF Discharge Orders: Discharge ED (Routine); Ordered 11/11/24 Ordered By: Trice Lerma Patient Instructions: COPD (Chronic Obstructive Pulmonary Disease) (DC) Activity Restrictions/Additional Instructions: Please follow-up with primary care next week if symptoms are not improving. You may return to the emergency department for severe shortness of breath or difficulty breathing, severe chest pain, or any other concerns you may have. Print Language: Cymraes Coding Level of Care Code ED Electromechanical Equipment Assembler for Aury Peña
--- NOTE | 2024-11-11 15:52 | PC.PHAR ---
[facility] and also states [facility] [place] and knows nothing about it
[2024-11-11 16:08] LABS: Basophils % 0.6 %; Eosinophils # 0.5 10^3/uL (0.0-0.8); Eosinophils % 6.6 %; Lymphocytes # 1.4 10^3/uL (0.8-4.8); Lymphocytes % 19.4 %; Mean Corpuscular HGB Conc 32.7 g/dL (30-55); Mean Corpuscular Hemoglobin 31.3 pg (27-33); Mean Corpuscular Volume 95.7 fl (82-101); Mean Platelet Volume 10.2 fL (7.4-10.4); Monocytes # 0.9 10^3/uL (0.2-0.9); Monocytes % 12.9 %; Neutrophils # 4.28 10^3/uL (1.8-7.7); Neutrophils % 60.2 %; Nucleated Red Blood Cells % 0 %; Platelet Count 197 10^3/cmm (157-399); Red Cell Distribution Width 13.8 % (12.1-15.1); White Blood Count 7.11 10^3/uL (3.29-11.43)
[2024-11-11 16:21] VITALS: PULSE 67; RESP 18; O2SAT 98
[2024-11-11] MEDS: ipratropium-albuterol 3 mL Neb INHALATION (16:22)
[2024-11-11 16:24] VITALS: PULSE 68
[2024-11-11 16:26] LABS: Troponin(5th) Baseline 11 ng/L (0-15)
[2024-11-11 16:28] LABS: Alanine Aminotransferase 37 U/L (0-41); Albumin Level 3.8 g/dL (3.5-5.2); Alkaline Phosphatase 95 U/L (40-130); Anion Gap 12.6 (5-19); Aspartate Amino Transferase 23 U/L (0-40); Blood Urea Nitrogen 28 mg/dL (8-23); Calcium 8.5 mg/dL (8.5-10.5); Carbon Dioxide 22 mmol/L (22-29); Chloride 108 mmol/L (98-107); Creatinine Clr Calc Pharmacy 106.7425; Globulin 2.3 g/dL (1.3-4.6); Glucose 92 mg/dL (65-115); Osmolality Calculated 291 mOsm/kg (285-295); Potassium 4.6 mmol/L (3.5-5.1); Sodium 138 mmol/L (136-145); Total Bilirubin 0.3 mg/dL (0.15-1.2); Total Protein 6.1 g/dL (6.6-8.7)
--- NOTE | 2024-11-11 16:39 | PC.NURSE ---
verbal order from KARSTEN beaver to order and give SOLU MEDROL 80MG IVP ONCE.
[2024-11-11 16:53] LABS: Influenza A NEGATIVE (Negative); Influenza B NEGATIVE (Negative); Respiratory Syncytial Virus Ce NEGATIVE (Negative); SARS-CoV-2 PCR NEGATIVE (Negative)
[2024-11-11] MEDS: methylPREDNISolone sod succ 125 mg/2 mL INJ 80 MG IVP (17:02)
[2024-11-11 17:10] VITALS: BP 105/53; PULSE 70; O2SAT 96
== END 2024-11-11 17:12 | disposition home or self-care (01) ==
PROVIDERS: Emergency Provider Physician Assistant
DX: J44.1 Chronic obstructive pulmonary disease with (acute) exacerbation (principal); Z11.52 Encounter for screening for COVID-19
CPT/HCPCS: 71045; 80053; 84484; 85025; 87637; 93005; 94640; 96374; 99285; J2919; J9999

== ENCOUNTER 2024-11-13 03:40 | Emergency (ER) | payer OTHER, SELFPAY ==
[2024-11-13 03:41] VITALS: BP 99/63; PULSE 75; RESP 20; TEMP 37.1; O2SAT 96; BMI 24.4
--- NOTE | 2024-11-13 03:46 | ECG_ITS ---
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[place]: : 1960 Requested By: IDA Randolph Order Number: [id number] Reading MD: JARRETT JOHNSON Measurements Intervals [place] Rate: 76 P: 55 VA: 133 QRS: -14 QRSD: 110 T: 127 QT: 412 QTc: 466 Interpretive Statements SINUS RHYTHM WITH OCCASIONAL VENTRICULAR PREMATURE COMPLEXES SEPTAL MYOCARDIAL INFARCTION , PROBABLY OLD [40+ ms Q WAVE IN V1/V2] MODERATE T-WAVE ABNORMALITY, CONSIDER LATERAL ISCHEMIA [-0.1+ mV T-WAVE IN I/aVL/V5/V6] Compared to ECG 11/11/2024 15:27:36 Ventricular premature complex(es) now present Myocardial infarct finding now present T-wave abnormality now present Possible ischemia now present Left ventricular hypertrophy no longer present ST (T wave) deviation no longer present Electronically Signed On 11-14-2024 18:08:56 CDT by JARRETT JOHNSON [email or web address] [id number]
--- NOTE | 2024-11-13 03:55 | XRR_ITS ---
PROCEDURE INFORMATION: Exam: XR Chest Exam date and time: 11/13/2024 3:56 AM Age: 64 years old Clinical indication: Chest pressure; C/O chest pain; Additional info: Cp TECHNIQUE: Imaging protocol: Radiologic exam of the chest. Views: 1 view. COMPARISON: CR (CHEST, ) 11/11/2024 15:40 FINDINGS: Lungs: Low lung volumes. No consolidation.Stable cardiomediastinal silhouette. Pleural spaces: Unremarkable. No pleural effusion. No pneumothorax. Heart/Mediastinum: See Lungs finding. Bones/joints: Degenerative changes of the spine seen. XR/XR chest 1V portable [id number] IMPRESSION: No evidence of active cardiopulmonary disease.
[2024-11-13 04:00] LABS: Basophils % 0.2 %; Eosinophils # 0.1 10^3/uL (0.0-0.8); Eosinophils % 0.6 %; Hematocrit 41.8 % (37-53); Lymphocytes # 1.5 10^3/uL (0.8-4.8); Lymphocytes % 13.4 %; Mean Corpuscular HGB Conc 33.3 g/dL (30-55); Mean Corpuscular Hemoglobin 31.7 pg (27-33); Mean Corpuscular Volume 95.2 fl (82-101); Mean Platelet Volume 10.8 fL (7.4-10.4); Monocytes # 1.3 10^3/uL (0.2-0.9); Monocytes % 12.1 %; Neutrophils # 8.01 10^3/uL (1.8-7.7); Neutrophils % 73.1 %; Nucleated Red Blood Cells % 0 %; Platelet Count 220 10^3/cmm (157-399); Red Blood Count 4.39 10^6/uL (3.85-5.65); Red Cell Distribution Width 14.3 % (12.1-15.1); White Blood Count 10.97 10^3/uL (3.29-11.43)
[2024-11-13 04:22] VITALS: BP 109/69; PULSE 72; RESP 28; O2SAT 95
[2024-11-13 04:24] LABS: Anion Gap 11.1 (5-19); Blood Urea Nitrogen 41 mg/dL (8-23); Calcium 8.9 mg/dL (8.5-10.5); Carbon Dioxide 23 mmol/L (22-29); Chloride 107 mmol/L (98-107); Glomerular Filtration Rate 67.4 mL/min (90-130); Glucose 125 mg/dL (65-115); Osmolality Calculated 296 mOsm/kg (285-295); Potassium 4.1 mmol/L (3.5-5.1); Sodium 137 mmol/L (136-145)
[2024-11-13 04:27] LABS: Troponin(5th) Baseline 15 ng/L (0-15)
--- NOTE | 2024-11-13 05:26 | ED_ITS ---
HPI - Chest Pain 2 General: Chief Complaint: Chest Pain Stated Complaint: cp Time Seen by Provider: 11/13/24 04:25 History of Present Illness: Patient presents with persistent chest pain and respiratory symptoms despite recent ED visit. Reports receiving albuterol inhaler and breathing treatment during previous visit, along with oral prednisone, which they have been taking as prescribed. Denies improvement in symptoms. Patient denies smoking history but admits to previous methamphetamine use via intranasal route for past 5 years, now clean for 46 days. Last used albuterol inhaler at 10:00. Denies knowledge of fever. Patient has been compliant with prescribed medications including albuterol inhaler and prednisone from previous visit. Related Data Previous Rx's ?Medication ?Instructions ?Recorded levetiracetam 500 mg tablet 500 mg PO BID #60 tabs 07/25 (Keppra) albuterol sulfate 90 mcg/actuation 2 inh inhalation Q4 H PRN shortness 11/11/24 aerosol inhaler of breath or wheezing #6.7 g rayne fluticasone propionate 45 2 inh inhalation BID #12 gra ms 11/11/24 mcg-salmeterol 21 mcg/actuation HFA inhaler (Advair HFA) prednisone 10 mg tablet 10 mg PO DAILY 6 days #20 ta bs 11/11/24 doxycycline monohydrate 100 mg 100 mg PO BID 7 days #1 4 caps 11/13/24 capsule Allergies Allergy/AdvReac Type Severity Reaction Status Date / Time haloperidol (From Haldol) Allergy ADR-Cramping Verified 11/04/24 18:30 of the Muscles ketorolac (From Toradol) Allergy ALGY-Hives Verified 11/04/24 18:30 sumatriptan (From Imitrex) Allergy ADR-Chest Verified 11/04/24 18:30 Pain Physical Exam 2 Const: COMMON NORMALS: no acute distress, patient oriented x3, alert and well nourished HENMT: COMMON NORMALS: normocephalic HEAD & SCALP: normocephalic Eye: COMMON NORMALS: Equal, round and reactive pupils present, EOMs intact bilaterally and conjunctivae normal CONJUNCTIVA: Yes conjunctivae normal P UPIL: Yes Equal, round and reactive pupils present Neck/C-Spine: COMMON NORMALS: full ROM, no lymphadenopathy, supple, no meningeal signs, no JVD and Thyroid normal THYROID: Thyroid normal Chest: COMMONS NORMALS: normal inspection of the chest and normal palpation of entire chest wall Resp: OTHER: Wheezing throughout but no respiratory distress Cardio: COMMON NORMALS: no JVD GI: COMMON NORMALS: Normal to inspection, nondistended, normoactive bowel sounds present, Soft to palpation, non-tender, No hepatosplenomegaly present, no masses and no bruits PALPATION: Yes Soft to palpation and Yes No hepatosplenomegaly present : COMMON NORMALS: Yes no CVA tenderness BLADDER/KIDNEY EXAM: Yes no CVA tenderness Back/Pelvis: COMMON NORMALS: no CVA tenderness Extremity: COMMON NORMALS: normal to inspection, full ROM, capillary refill normal, no joint enlargement, no clubbing, cyanosis or edema, no calf tenderness and no pedal edema Neuro: COMMON NORMALS: patient oriented x3 SENSORIUM/ORIENTATION: Yes alert MENINGEAL SIGNS: Yes no meningeal signs Skin: COMMON NORMALS: no rashes or lesions noted, turgor normal and no jaundice GENERAL SKIN EXAM: no rashes or lesions noted and turgor normal Course 2 Vital Signs: Vital signs: Vital Signs Temperature 98.8 F 11/13/24 03:41 Pulse Rate 72 11/13/24 04:22 Respiratory Rate 28 H 11/13/24 04:22 Blood Pressure 109/69 11/13/24 04:22 Pulse Oximetry 95 11/13/24 04:22 Oxygen Delivery Me thod Room Air 11/13/24 04:22 MDM - Chest Pain Medical Decision Making 1. COPD Exacerbation: - Likely complicated by superimposed infection - Continue albuterol inhaler 1-2 puffs q4h PRN - Continue current course of oral prednisone - Initiate antibiotic therapy - Administering IV antibiotics during visit 2. Follow-up Plan: - Continue current rescue inhaler regimen - Consider maintenance inhaler evaluation at follow-up - Monitor for improvement of symptoms - Return if symptoms worsen or fail to improve Lab Data 11/13/24 03:52 11/13/24 03:52 Radiology Impressions Chest X-Ray 11/13/24 03:55 IMPRESSION: No evidence of active cardiopulmonary disease. Laboratory Results WBC 10.97 10^3/uL (3.29-11.43) 11/13/24 03:52 RBC 4.39 10^6/uL (3.85-5.65) 11/13/24 03:52 Hgb 13.90 g/dL (11.27-16.99) 11/13/24 03:52 Hct 41.8 % (37-53) 11/13/24 03:52 MCV 95.2 fl (82-101) 11/13/24 03:52 MCH 31.7 pg (27-33) 11/13/24 03:52 MCHC 33.3 g/dL (30-55) 11/13/24 03:52 RDW 14.3 % (12.1-15.1) 11/13/24 03:52 Plt Count 220 10^3/cmm (157-399) 11/13/24 03:52 MPV 10.8 fL (7.4-10.4) H 11/13/24 03:52 Neut % (Auto) 73.1 % 11/13/24 03:52 Lymph % (Auto) 13.4 % 11/13/24 03:52 Tucker % (Auto) 12.1 % 11/13/24 03:52 Eos % (Auto) 0.6 % 11/13/24 03:52 Baso % (Auto) 0.2 % 11/13/24 03:52 Neut # (Auto) 8.01 10^3/uL (1.8-7.7) H 11/13/24 03:52 Lymph # (Auto) 1.5 10^3/uL (0.8-4.8) 11/13/24 03:52 Tucker # (Auto) 1.3 10^3/uL (0.2-0.9) H 11/13/24 03:52 Eos # (Auto) 0.1 10^3/uL (0.0-0.8) 11/13/24 03:52 Baso # (Auto) 0.0 10^3/uL (0.0-0.1) 11/13/24 03:52 Nucleated RBC % (auto) 0 % 11/13/24 03:52 Nucleated RBCs # 0.0 /100WBC 11/13/24 03:52 Sodium 137 mmol/L (136-145) 11/13/24 03:52 Potassium 4.1 mmol/L (3.5-5.1) 11/13/24 03:52 Chloride 107 mmol/L (98-107) 11/13/24 03:52 Carbon Dioxide 23 mmol/L (22-29) 11/13/24 03:52 Anion Gap 11.1 (5-19) 11/13/24 03:52 BUN 41 mg/dL (8-23) H 11/13/24 03:52 Creatinine 1.1 mg/dL (0.7-1.2) 11/13/24 03:52 GFR Calculation 67.4 mL/min (90-130) L 11/13/24 03:52 Glucose 125 mg/dL (65-115) H 11/13/24 03:52 Calculated Osmolality 296 mOsm/kg (285-295) H 11/13/24 03:52 Calcium 8.9 mg/dL (8.5-10.5) 11/13/24 03:52 Troponin T Baseline 15 ng/L (0-15) 11/13/24 03:52 Troponin T 120 Minute 12.18 ng/L (0-15) 11/13/24 05:15 XR interpretation done by ED provider, pending radiology final review Discharge Plan Discharge Patient Disposition: Home Clinical Impression: Acute exacerbation of chronic obstructive airways disease Condition: Stable Prescriptions: New doxycycline monohydrate 100 mg capsule 100 mg PO BID 7 Days Qty: 14 0RF No Action levetiracetam [Keppra] 500 mg tablet 500 mg PO BID Qty: 60 0RF prednisone 10 mg tablet 10 mg PO DAILY 6 Days Qty: 20 0RF Rx Instructions: Take 5 tabs on day 1-2, 4 tabs on day 3, 3 tabs on day 4, 2 tabs on day 5, and 1 tab on day 6 albuterol sulfate 90 mcg/actuation HFA aerosol inhaler 2 inh INHALATION Q4H PRN (Reason: shortness of breath or wheezing) Qty: 6.7 0RF fluticasone propion-salmeterol [Advair HFA] 45-21 mcg/actuation HFA aerosol inhaler 2 inh inhalation BID Qty: 12 0RF Discharge Orders: Discharge ED (Routine); Ordered 11/13/24 Ordered By: Gil Jacob Discharge Diet: Usual diet Discharge Activity: Limit activity as instructed Patient Instructions: Opioid Safety, Pain Management Activity Restrictions/Additional Instructions: 1. Continue prednisone, inhaler and start antibiotic. 2. Follow up with PCP this week for recheck. Print Language: Kinyarwanda Coding Level of Care Code ED Chemical Production Engineer for Aury Peña
[2024-11-13 05:37] LABS: Troponin 5 2HR 12.18 ng/L (0-15)
[2024-11-13 05:39] LABS: Troponin 5 2HR Delta -2.82 ABS# (0-10)
[2024-11-13] MEDS: doxycycline 100 mg Tablet PO (05:45)
[2024-11-13 05:50] VITALS: BP 98/51; PULSE 71; PULSE 76; RESP 16; RESP 18; TEMP 36.4; O2SAT 97; O2SAT 98
[2024-11-13] MEDS: ipratropium-albuterol 3 mL Neb INHALATION (05:53)
[2024-11-13 05:55] VITALS: PULSE 73; RESP 18; O2SAT 99
== END 2024-11-13 05:55 | disposition home or self-care (01) ==
PROVIDERS: Orthopaedic Surgery Sports Medicine; Emergency Provider Family Medicine
DX: J44.1 Chronic obstructive pulmonary disease with (acute) exacerbation (principal)
CPT/HCPCS: 71045; 80048; 84484; 85025; 93005; 94640; 99285; J9999

== ENCOUNTER 2024-11-14 20:00 | Emergency (ER) | payer OTHER, SELFPAY ==
[2024-11-14 20:01] VITALS: BP 95/56; PULSE 79; RESP 18; TEMP 36.8; O2SAT 97; BMI 33.2
[2024-11-14 20:04] VITALS: BP 100/50; PULSE 78; RESP 16; O2SAT 97
--- NOTE | 2024-11-14 20:06 | W.ED.SEIZURE ---
HPI - Seizure General: Chief Complaint: Seizure Stated Complaint: possible seizures Time Seen by Provider: 11/14/24 20:01 History of Present Illness: HPI Narrative: This patient is a 64-year-old white male who is currently at [facility] for drug rehab. Patient has been seen numerous times over the past week for seizures and respiratory issues. He has had thorough workups in the emergency department. He is on Keppra 500 mg p.o. twice daily. Apparently had 3 seizures at [facility] today. He is currently awake alert. Apparently there was no postictal state. He is in no distress. Seizure History: Yes Related Data Previous Rx's ?Medication ?Instructions ?Recorded levetiracetam 500 mg tablet 500 mg PO BID #60 tabs 11/08/24 (Keppra) albuterol sulfate 90 mcg/actuation 2 inh inhalation Q4H PRN shortness 11/11/24 aerosol inhaler of breath or wheezing #6.7 grams fluticasone propionate 45 2 inh inhalation BID #12 grams 11/11/24 mcg-salmeterol 21 mcg/actuation HFA inhaler (Advair HFA) prednisone 10 mg tablet 10 mg PO DAILY 6 days #20 tabs 11/11/24 doxycycline monohydrate 100 mg 100 mg PO BID 7 days #14 caps 11/13/24 capsule Allergies Allergy/AdvReac Type Severity Reaction Status Date / Time haloperidol (From Haldol) Allergy ADR-Cramping Verified 11/14/24 20:04 of the Muscles ketorolac (From Toradol) Allergy ALGY-Hives Verified 11/14/24 20:04 sumatriptan (From Imitrex) Allergy ADR-Chest Verified 11/14/24 20:04 Pain Review of Systems Narrative: Constitutional symptoms: Negative except as documented in HPI. Skin symptoms: Negative except as documented in HPI. Eye symptoms: Negative except as documented in HPI. ENMT symptoms: Negative except as documented in HPI. Respiratory symptoms: Negative except as documented in HPI. Cardiovascular symptoms: Negative except as documented in HPI. Gastrointestinal symptoms: Negative except as documented in HPI. Genitourinary symptoms: Negative except as documented in HPI. Musculoskeletal symptoms: Negative except as documented in HPI. Neurologic symptoms: Negative except as documented in HPI. Psychiatric symptoms: Negative except as documented in HPI. Endocrine symptoms: Negative except as documented in HPI. Physical Exam Narrative: EXAM NARRATIVE: General: Alert, no acute distress. Skin: warm and dry Head: Normocephalic Neck: Trachea midline Eye: Extraocular movements are intact. Ears, nose, mouth and throat: Oral mucosa moist Respiratory: Respirations are non-labored Musculoskeletal: Normal ROM Neurological: Alert and oriented, No focal neurological deficit observed. Psychiatric: Cooperative, appropriate mood & affect. Course Vital Signs: Vital signs: Vital Signs Temperature 98.2 F 11/14/24 20:01 Pulse Rate 73 11/14/24 20:14 Respiratory Rate 16 11/14/24 20:04 Blood Pressure 101/57 11/14/24 20:14 Pulse Oximetry 97 11/14/24 20:14 Oxygen Delivery Me thod Room Air 11/14/24 20:01 MDM - Seizure MDM Narrative Medical decision making narrative: Assessment and plan: Seizure-like activity ?At this point it does not appear he is having any sort of life-threatening seizures. I advise he follow-up with neurology. - Discharged home - Discussed plan with patient. Answered any questions. No radiology studies performed this visit Discharge Plan Discharge Patient Disposition: Home Clinical Impression: Seizure-like activity Condition: Stable Prescriptions: No Action levetiracetam [Keppra] 500 mg tablet 500 mg PO BID Qty: 60 0RF prednisone 10 mg tablet 10 mg PO DAILY 6 Days Qty: 20 0RF Rx Instructions: Take 5 tabs on day 1-2, 4 tabs on day 3, 3 tabs on day 4, 2 tabs on day 5, and 1 tab on day 6 albuterol sulfate 90 mcg/actuation HFA aerosol inhaler 2 inh INHALATION Q4H PRN (Reason: shortness of breath or wheezing) Qty: 6.7 0RF fluticasone propion-salmeterol [Advair HFA] 45-21 mcg/actuation HFA aerosol inhaler 2 inh inhalation BID Qty: 12 0RF doxycycline monohydrate 100 mg capsule 100 mg PO BID 7 Days Qty: 14 0RF Discharge Orders: Discharge ED (Routine); Ordered 11/14/24 Ordered By: Jenny Sam Referrals: Marilu Loo MD [Physician] - (Please call for a follow-up appointment) Discharge Diet: Usual diet Discharge Activity: Limit activity as instructed Patient Instructions: Epilepsy (ED), Opioid Safety, Pain Management Activity Restrictions/Additional Instructions: No driving until cleared by your primary care provider or a neurologist. Thank you for choosing [facility] for your healthcare needs today. Please realize this is an emergency room and that we are providing you with a medical screening exam and this may not be complete and all inclusive of all the testing and or work up that you may need to determine your ailment or severity of your illness. You have been screened and evaluated and felt safe for discharge. Health conditions do change or evolve sometimes and as such it is important that you follow up with your Primary Doctor to be re checked, 3-5 days is a general good time frame for follow up. You are always welcome to return to the ED for re assessment if your symptoms are worsening or you have new concerns Print Language: Lao Coding Level of Care Code ED Hoop Coiler for Aury Peña
[2024-11-14 20:14] VITALS: BP 101/57; PULSE 73; O2SAT 97
== END 2024-11-14 20:22 | disposition home or self-care (01) ==
PROVIDERS: Emergency Provider Emergency Medicine
DX: R56.9 Unspecified convulsions (principal)
CPT/HCPCS: 99283

== ENCOUNTER → 2024-11-17 14:26 | Outpatient (BNVA) | payer SELFPAY | PROVIDERS: Visit Provider Emergency Medicine | DX: R60.0 Localized edema (principal); I50.9 Heart failure, unspecified | CPT/HCPCS: 80053; 83880; 84443 ==